=== PATIENT | male | born 1935 | race Caucasian/White ===

== ENCOUNTER 2020-06-29 10:41 | Inpatient (IN) | payer MEDICARE ==
[~2020-06-29] VITALS: Ht 165.1 cm; Wt 88.6 kg
[2020-06-29 12:08] VITALS: BP 114/74
[2020-06-29] MEDS ORDERED: METHYL SALICYLATE/MENTHOL TOPICAL OINTMENT 57GM TUBE. TP PRN (13:00)
[2020-06-29] MEDS ORDERED: MAGNESIUM HYDROXIDE 2,400 MG/30 ML ORAL.SUSP. PO PRN (13:00)
[2020-06-29] MEDS ORDERED: ACETAMINOPHEN 325 MG TABLET PO PRN ×2 (13:00→15:30)
[2020-06-29] MEDS ORDERED: MAG HYDROX/AL HYDROX/SIMETH 30 ML ORAL.SUSP PO PRN (13:00)
[2020-06-29 13:34] LABS: BASO # 0.1 x10^3/uL (0.0-0.2); BASO % 1 % (0-3); EOS # 0.1 x10^3/uL (0.0-0.7); EOS % 1 % (0-3); HEMATOCRIT 44.7 % (39.0-53.0); LYMPH # 1.4 x10^3/uL (1.0-4.8); LYMPH % 21 % (24-48); MEAN CORPUSCULAR HEMOGLOBIN 32 pg (25-35); MEAN CORPUSCULAR HGB CONC 34 g/dL (31-37); MEAN CORPUSCULAR VOLUME 95 fL (79-100); MONO # 0.5 x10^3/uL (0.0-1.1); MONO % 8 % (0-9); NEUT # 4.6 x10^3uL (1.8-7.7); NEUT % 69 % (31-73); PLATELET COUNT 182 x10^3/uL (140-400); RED CELL DISTRIBUTION WIDTH 13.4 % (11.5-14.5); WHITE BLOOD COUNT 6.7 x10^3/uL (4.0-11.0)
[2020-06-29 13:50] LABS: ALBUMIN 3.3 g/dL (3.4-5.0); ALBUMIN/GLOBULIN RATIO 0.9 (1.0-1.7); CALCIUM 8.7 mg/dL (8.5-10.1); CREATININE 1.6 mg/dL (0.7-1.3); GFR 41.6; POTASSIUM 4.2 mmol/L (3.5-5.1); TOTAL BILIRUBIN 0.3 mg/dL (0.2-1.0); TOTAL PROTEIN 6.9 g/dL (6.4-8.2)
--- NOTE | 2020-06-29 14:30 | HP ---
ADMIT DATE: 06/29/2020 HISTORY OF PRESENT ILLNESS: The patient is a pleasant 84-year-old gentleman sent here from [facility]. He has been despondent with suicidal ideations. No active plan. He has been treated for the past year for major depression with some worsening symptoms. He has frequent panic attacks. He feels hopeless. He is admitted in for further treatment and evaluation. Recently, he has been started on combination of Trintellix along with Xanax. OTHER MEDICATIONS: Include vitamin C, aspirin, vitamin D3, Plavix, glucosamine, Lamictal, lisinopril, Remeron, multivitamin, nitroglycerin, Tramadol, and omega 3 fatty acids. OTHER MEDICAL HISTORY: Includes hypertension, degenerative arthritis, and obesity. ALLERGIES: HE HAS ALLERGIES TO CLARITHROMYCIN, DEMEROL, MOXIFLOXACIN, AND PNEUMOCOCCAL VACCINE EXACT CAUSE IS UNCLEAR. SOCIAL HISTORY: He is a nonsmoker, nondrinker. 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 He is and lives with his at home in [place], [place]. He has 6 sons and 17 grandchildren. FAMILY HISTORY: Mother of a pulmonary embolus at age 59. Father of complications of congestive heart failure at age 83. He is retired. REVIEW OF SYSTEMS: Significant for dyspnea with minimal exertion. He denied any chest pain. He had a cardiac catheterization in 2011. He has had bypass surgery with a PIERSON to the LAD, the last echocardiogram done in 03/2019 showed a calcified aortic annulus. Pulmonary artery pressures were 32 mmHg systolic. Ejection fraction preserved at 65%. There is grade 1 diastolic dysfunction. Review of systems again is significant for some minimal exertional dyspnea. His appetite has been fair. He has been depressed. He has had suicidal ideation without any plan. No nausea, vomiting or diarrhea. All other systems reviewed and turned to be negative. PHYSICAL EXAMINATION: GENERAL: This is a pleasant gentleman. His affect was normal. We had a normal conversation. He told me about his family. He did not appear depressed or actively suicidal. VITAL SIGNS: Initial vital signs in our hospital showed a blood pressure 114/74 mmHg, pulse is 72 and regular, temperature 97.8 degrees Fahrenheit, pulse ox was 91% on room air. HEENT: Head is without trauma. Pupils are reactive. Sclerae are nonicteric. Oropharynx is clear. NECK: Supple, no bruits. LUNGS: Good breath sounds, otherwise clear. CARDIOVASCULAR: Showed regular heart tones. No gallops. Peripheral pulses are palpable and full. There is a soft early grade 2 systolic murmur at the left sternal border. ABDOMEN: Obese, protuberant. I cannot palpate any masses or organomegaly. Bowel sounds are normoactive. EXTREMITIES: Show no cyanosis or edema. NEUROLOGIC: Focally intact. SKIN: Warm and dry. Speech was fluent. Cranial nerves 2-12 were intact and symmetrical. PERTINENT LABORATORY STUDIES: His CBC showed hemoglobin of 15.0 g/dL with white count of 6700. The obligatory COVID-19 swab is pending. He had a negative swab according to the patient 2 days ago in [facility]. ASSESSMENT: 1. This 84-year-old gentleman is admitted with major depression and suicidal ideations. He does not have an active plan at this time. 2. Essential hypertension. 3. Major depression with anxiety and frequent panic attacks. 4. Degenerative arthritis. 5. Morbid obesity. PLAN: 1. Admit to the medical floor for COVID screening. He will go up to the [facility] when his COVID swabs are negative. 2. Continue home meds as ordered. 3. We should gladly follow along during the course of his inpatient stay. He is stable at this time from a medical standpoint. CEDRICK DOLAN MD DR: YA/seven JOB#: [id number] / [id number] MARGARET Obregon MD
[2020-06-29] MEDS ORDERED: CLOP75TA57 PO (15:26)
[2020-06-29] MEDS ORDERED: LISI10TA2 PO (15:26)
[2020-06-29] MEDS ORDERED: ASCO500C PO (15:26)
[2020-06-29] MEDS ORDERED: ALPR0.5T6 PO (15:26)
[2020-06-29] MEDS ORDERED: MV-M1TAB7 PO (15:26)
[2020-06-29] MEDS ORDERED: MIRT30TA93 PO (15:26)
[2020-06-29] MEDS ORDERED: ASPI-630 PO (15:26)
[2020-06-29] MEDS ORDERED: GLUC100018 PO (15:26)
[2020-06-29] MEDS ORDERED: VORT5TAB PO (15:26)
[2020-06-29] MEDS ORDERED: MULT-245 PO (15:26)
[2020-06-29] MEDS ORDERED: TRAM50TA PO (15:26)
[2020-06-29] MEDS ORDERED: LAMO25TA9 PO (15:26)
[2020-06-29] MEDS ORDERED: ACET325T21 PO (15:26)
[2020-06-29] MEDS ORDERED: OMEG1CAP38 PO (15:26)
[2020-06-29] MEDS ORDERED: NITR0.4T22 SL (15:26)
[2020-06-29] MEDS ORDERED: NITROGLYCERIN SUBLINGUAL 0.4 MG BOTTLE OF 25. SL PRN (15:30)
[2020-06-29] MEDS ORDERED: traMADol 50 MG TABLET PO PRN (15:30)
[2020-06-29 15:34] VITALS: BP 128/69
--- NOTE | 2020-06-29 17:00 | NUR ---
Patient was speaking to nurse regarding his depression. He stated that in the past he has had ECT, TMJ and light therapy. He has had recurrent episodes of depression with the last one occurring "probably 10 years ago". When asked what medications he thought were the most helpful to him then he stated Haigler, He does not know the dose he was on. He is currently on Lamictal and Trintellix, but states that he is "not impressed" with either one and they don't seem to be working. Nurse provided education to patient that depression medications and mood stabilizers are not immediately effective and that it could take a couple of weeks. Patient stated that he understood this. Patient admits that he is very depressed and that he thought about suicide, but had no plan. He also stated his confucianist and family would prevent him from ever doing something like that.
--- NOTE | 2020-06-29 17:44 | NUR ---
The patient, SRIDHAR KNUTSON, 84 y/o, M admitted by Portillo Longoria, was instructed as to hospital procedures and what to expect on his stay. Patient arrived at 1130 from [facility], via ambulance on a gurney. He has a re-occurrent episode of MDD and is being admitted for Covid Screen prior to admittance to [facility]. Patient had a flat affect on arrival. He states he has had many episodes of depression with remission between them. He stated this one is pretty bad and he had considered suicide but then thought of his family and his bahai. He denies SI at this time. Patient alert and oriented x4. He presents as a good historian. Patient belongings included a suitcase and some books. Patient wears glasses. No valuables were checked at this time.
[2020-06-29] MEDS: MIRTAZAPINE ODT 30 MG TAB.RAPDIS. PO SCH (21:13)
[2020-06-29] MEDS: GLUCOSAMINE 500 MG CAPSULE PO SCH (21:13)
[2020-06-29] MEDS: OMEGA-3 FATTY ACIDS/FISH OIL 1,000 MG CAPSULE. PO SCH (21:13)
--- NOTE | 2020-06-29 21:50 | PDOC ---
Exam Note: Julian Note: Please also refer to the separate dictated note~for this date of service dictated separately.~Patient seen individually. Discussed the patient with Nursing staff reviewed the chart.~Reviewed interim history and current functioning. Reviewed vital signs,~Labs/ Radiology~and current medications noted below. Continue current treatment with the changes noted in the dictated addendum note Assessment: Vital Signs/I&O: Vital Signs Date Time Temp Pulse Resp B/P (MAP) Pulse Ox O2 Delivery O2 Flow Rate FiO2 06/29/20 15:34 96.5 68 18 128/69 (88) 93 Room Air Labs: Laboratory Tests Test 06/29/20 13:22 White Blood Count 6.7 x10^3/uL (4.0-11.0) Red Blood Count 4.70 x10^6/uL (4.30-5.70) Hemoglobin 15.0 g/dL (13.0-17.5) Hematocrit 44.7 % (39.0-53.0) Mean Corpuscular Volume 95 fL (79-100) Mean Corpuscular Hemoglobin 32 pg (25-35) Mean Corpuscular Hemoglobin Concent 34 g/dL (31-37) Red Cell Distribution Width 13.4 % (11.5-14.5) Platelet Count 182 x10^3/uL (140-400) Neutrophils (%) (Auto) 69 % (31-73) Lymphocytes (%) (Auto) 21 % (24-48) L Monocytes (%) (Auto) 8 % (0-9) Eosinophils (%) (Auto) 1 % (0-3) Basophils (%) (Auto) 1 % (0-3) Neutrophils # (Auto) 4.6 x10^3uL (1.8-7.7) Lymphocytes # (Auto) 1.4 x10^3/uL (1.0-4.8) Monocytes # (Auto) 0.5 x10^3/uL (0.0-1.1) Eosinophils # (Auto) 0.1 x10^3/uL (0.0-0.7) Basophils # (Auto) 0.1 x10^3/uL (0.0-0.2) Sodium Level 138 mmol/L (136-145) Potassium Level 4.2 mmol/L (3.5-5.1) Chloride Level 104 mmol/L (98-107) Carbon Dioxide Level 24 mmol/L (21-32) Anion Gap 10 (6-14) Blood Urea Nitrogen 21 mg/dL (8-26) Creatinine 1.6 mg/dL (0.7-1.3) H Estimated GFR (Cockcroft-Gault) 41.6 BUN/Creatinine Ratio 13 (6-20) Glucose Level 139 mg/dL (70-99) H Calcium Level 8.7 mg/dL (8.5-10.1) Magnesium Level 2.0 mg/dL (1.8-2.4) Total Bilirubin 0.3 mg/dL (0.2-1.0) Aspartate Amino Transferase (AST) 18 U/L (15-37) Alanine Aminotransferase (ALT) 31 U/L (16-63) Alkaline Phosphatase 80 U/L (46-116) Total Protein 6.9 g/dL (6.4-8.2) Albumin 3.3 g/dL (3.4-5.0) L Albumin/Globulin Ratio 0.9 (1.0-1.7) L Current Medications: Meds: Current Medications Medications (Trade) Dose Ordered Sig/Chelsi Route PRN Reason Start Time Stop Time Status Last Admin Dose Admin Mirtazapine (Remeron Marlee-Tab) 30 mg HS PO 06/29/20 21:00 06/29/20 21:13 Glucosamine Sulfate (Glucosamine) 1,000 mg BID PO 06/29/20 21:00 06/29/20 21:13 Fish Oil (Fish Oil) 1,000 mg BID PO 06/29/20 21:00 06/29/20 21:13 I have reviewed the current psychotropics carefully including drug interactions. Risk benefit ratio favors no change other than as noted in my dictated progress note. Diagnosis: Problems: (1) COVID-19 ruled out by laboratory testing MARGARET LANGLEY MD Jun 29, 2020 21:50
[2020-06-30 03:07] LABS: THYROXINE 5.3 ug/dL (4.5-12.0)
--- NOTE | 2020-06-30 03:14 | NUR ---
Nursing Note ANAMARIA Ferris entered the room to answer pt's call light. Barrington had previously provided the patient 3 warmed blankets. The patient became highly verbally aggressive with an angry threatening posture with ANAMARIA stating through gritted teeth "It's cold in here, all of you in this place are treating me like an animal and I don't like it!!! I'm going to the higher ups on you!!!" Patient provided an additional blanket, encouraged pt to get under his 4 warmed blankets and get some rest. Pt still with angry scowl on his face, covered up and ignored staff's encouragement. Pt's room and hallway outside room cleared of any potential harmful objects and or contraband.
[2020-06-30 04:08] LABS: HEMOGLOBIN A1C 6.4 % (4.8-5.6)
[2020-06-30 06:16] VITALS: BP 111/50
--- NOTE | 2020-06-30 06:45 | NUR ---
Nursing Note The patient was calm and compliant with his assessment initially this shift. The patient took his medication whole. The patient had one episode of agitation and verbal aggressiveness @HS. The patient is currently sleeping in his room.
--- NOTE | 2020-06-30 07:48 | NUR ---
Nursing Note During shift change, the patient is pacing in his room mumbling under his breath angrily, he is packing and un packing his belongings and room is right by the exit door. Pt posturing and angry this am. CRUSHER TENDER will station herself in the callahan for observation.
[2020-06-30] MEDS: ASCORBIC ACID 500 MG TABLET PO SCH (08:10)
[2020-06-30] MEDS: CLOPIDOGREL BISULFATE 75 MG TABLET PO SCH (08:10)
[2020-06-30] MEDS: CHOLECALCIFEROL (VITAMIN D3) 1,000 UNIT TABLET PO SCH (08:10)
[2020-06-30] MEDS: OMEGA-3 FATTY ACIDS/FISH OIL 1,000 MG CAPSULE. PO SCH ×2 (08:10→20:46)
[2020-06-30] MEDS: LISINOPRIL 10 MG TABLET PO SCH (08:10)
[2020-06-30] MEDS: ASPIRIN CHEWABLE 81 MG TABLET. PO SCH (08:10)
[2020-06-30] MEDS: ALPRAZolam 0.5 MG TABLET PO PRN ×3 (08:10→17:51)
[2020-06-30] MEDS: MULTIVITAMIN with MINERAL TABLET. PO SCH (08:11)
[2020-06-30] MEDS: GLUCOSAMINE 500 MG CAPSULE PO SCH ×2 (08:12→20:47)
[2020-06-30] MEDS: DULoxetine HCL 30 MG CAPSULE.DR PO SCH (08:17)
[2020-06-30] MEDS ORDERED: NON FORMULARY ITEM (Vortioxetine Hydrobromide (Trintellix) 5 MG) PO SCH (09:00)
[2020-06-30] MEDS ORDERED: NON FORMULARY ITEM (Mv-Mn/Iron/Fa/Herbal Cmplx#190 (Vitamin D3 Complete Caplet) 1 EACH) PO SCH (09:00)
--- NOTE | 2020-06-30 11:47 | PN ---
DATE: 06/30/2020 ATTENDING PHYSICIAN: Dr. Dolan. SUBJECTIVE: The patient had a rough night. He did not like his bed. He was uncomfortable. He also complained of being cold. OBJECTIVE FINDINGS: VITAL SIGNS: Blood pressure today is 128/69, pulse 70 and regular, temperature 96.5 degrees Fahrenheit, oxygen saturation 93% on room air. HEENT: Head is without trauma. Pupils are reactive. Sclerae nonicteric. Oropharynx clear. NECK: Supple. LUNGS: Clear. CARDIOVASCULAR: Showed regular heart tones. ABDOMEN: Soft. EXTREMITIES: Without edema. NEUROLOGIC: Focally intact, fully ambulatory. No deficit. SKIN: Warm and dry. LABORATORY DATA: Hemoglobin 15.3 gram. The rest of the chemistry panel unremarkable. Creatinine slightly elevated at 1.6 mg/dL. ASSESSMENT: 1. 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 2. Major depression. 3. Essential hypertension. 4. Degenerative arthritis. 5. Morbid obesity. PLAN: 1. We are waiting for COVID-19 swab. He will go to the [facility] when bed is available. I reviewed his meds. 2. Diet as tolerated. CEDRICK DOLAN MD DR: YA/seven JOB#: [id number] / [id number]
[2020-06-30] MEDS: lamoTRIgine 25 MG TABLET. PO SCH (12:35)
[2020-06-30 17:57] VITALS: BP 138/76
[2020-06-30] MEDS ORDERED: traZODone 50 MG TABLET. PO PRN (18:30)
[2020-06-30] MEDS: QUEtiapine 50 MG TABLET. PO SCH ×2 (18:37→19:34)
--- NOTE | 2020-06-30 19:29 | CONS ---
DATE OF CONSULTATION: IDENTIFYING DATA: The patient is an 84-year-old male referred to us from [facility], where he presented from home on account of worsening symptoms of depression with active suicidal ideation, but no plan, intent or attempt and within the context of the past history of bipolar disorder, treated at different times on ECT, transcranial magnetic stimulation, light therapy and medications. The patient has been increasingly obsessive, was having suicidal ideation, prompting the referral to the ER and then to us for inpatient psychiatric stabilization. He was admitted on the care home unit to have COVID screen completed before transition to the [facility], and I have been asked to consult him while he is on Med/Surg Skilled Unit. He was also having panic attacks, drop in his appetite, not sleeping, hopeless with poor personal hygiene, and had failed outpatient psychiatric interventions. CHIEF COMPLAINT: "I did best on lithium in the past. I feel guilty about a lot of things I have said and done. I don't know how to get to feeling better. 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 No homicidal ideation. PAST PSYCHIATRIC HISTORY: As above. MEDICAL HISTORY: Positive for hypertension, degenerative arthritis, obesity. ALLERGIES: CLARITHROMYCIN, DEMEROL, MOXIFLOXACIN, PNEUMOCOCCAL VACCINE. CURRENT PSYCHOTROPICS: Lamictal 25 mg a day until 07/09/2020 and then 50 mg a day, increasing gradually; Cymbalta 30 mg a day; Remeron 30 mg at bedtime; Xanax 0.5 mg t.i.d. p.r.n. anxiety. The patient was on Trintellix prior to admission. This was changed to Cymbalta 30 mg a day at admission. DIET: Diabetic. Ambulates up ad kevin. CODE STATUS: Full code. PAST PSYCHIATRIC HISTORY: As noted above, he has been treated with ECT, transcranial magnetic stimulation, light therapy, and various antidepressants at different times in the past. FAMILY HISTORY: Noncontributory. 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 No alcohol or drug abuse history is noted. REVIEW OF SYSTEMS: No CV, , pulmonary, eye system symptoms on review. MENTAL STATUS EXAMINATION: The patient was seen individually in his room on the evening of 06/29/2020. Previously discussed with Janee Corral, rental coordinator and NICOLE Curiel and NICOLE Briggs. He is well oriented. Speech coherent, abstraction fair, computation impaired, language function intact, attention span short. Mood is depressed, anxious. Denies active suicidal ideation. LABORATORY DATA: Reviewed. IMPRESSION: Bipolar disorder, depressed; anxiety disorder, unspecified. Rest as above. RECOMMENDATION: From a psychiatric standpoint, we will change the Trintellix to Cymbalta as noted, and he has been initiated on Lamictal. We will increase gradually. May use Abilify or Seroquel to augment the antidepressant depending on how he does. He will be transferred to the [facility] once he is medically cleared for COVID, and we will make further adjustments in the psychotropics as clinically indicated. MAN Dale LANGLEY MD DR: KEESHA/seven JOB#: [id number] / [id number]
[2020-06-30 19:44] LABS: THYROID STIM HORMONE (TSH) 1.18 uIU/mL (0.358-3.740)
[2020-06-30] MEDS: MIRTAZAPINE ODT 30 MG TAB.RAPDIS. PO SCH (20:46)
--- NOTE | 2020-06-30 21:54 | PDOC ---
Exam Note: Julian Note: Please also refer to the separate dictated note~for this date of service dictated separately.~Patient seen individually. Discussed the patient with Nursing staff reviewed the chart.~Reviewed interim history and current functioning. Reviewed vital signs,~Labs/ Radiology~and current medications noted below. Continue current treatment with the changes noted in the dictated addendum note Assessment: Vital Signs/I&O: Vital Signs Date Time Temp Pulse Resp B/P (MAP) Pulse Ox O2 Delivery O2 Flow Rate FiO2 06/30/20 17:57 97.3 82 18 138/76 (96) 92 06/29/20 15:34 Room Air I & O 06/29/20 06/29/20 06/30/20 15:00 23:00 07:00 Intake Total 240 ml 240 ml 150 ml Balance 240 ml 240 ml 150 ml Current Medications: Meds: Current Medications Medications (Trade) Dose Ordered Sig/Chelsi Route PRN Reason Start Time Stop Time Status Last Admin Dose Admin Aspirin (Aspirin Chewable) 81 mg DAILY PO 06/30/20 09:00 06/30/20 08:10 Clopidogrel Bisulfate (Plavix) 75 mg DAILY PO 06/30/20 09:00 06/30/20 08:10 Lisinopril (Prinivil) 10 mg DAILY PO 06/30/20 09:00 06/30/20 08:10 Ascorbic Acid (Vitamin C) 1,000 mg DAILY PO 06/30/20 09:00 06/30/20 08:10 Multivitamins/ Calcium (Thera-M Plus) 1 tab DAILY PO 06/30/20 09:00 06/30/20 08:11 Vitamin D (Vitamin D3) 2,000 unit DAILY PO 06/30/20 09:00 06/30/20 08:10 Lamotrigine (LaMICtal) 25 mg DAILY PO 06/30/20 09:00 07/09/20 23:59 06/30/20 12:35 Duloxetine HCl (Cymbalta) 30 mg DAILY PO 06/30/20 09:00 06/30/20 08:17 Olanzapine (ZyPREXA ZYDIS) 2.5 mg PRN Q2HR PRN PO PSYCHOSIS 06/30/20 18:30 06/30/20 18:37 Trazodone HCl (Desyrel) 50 mg PRN QHS PRN PO INSOMNIA, MAY REPEAT X1 06/30/20 18:30 06/30/20 20:46 Quetiapine Fumarate (SEROquel) 50 mg QHS PO 06/30/20 18:30 06/30/20 18:37 I have reviewed the current psychotropics carefully including drug interactions. Risk benefit ratio favors no change other than as noted in my dictated progress note. Diagnosis: Problems: (1) COVID-19 ruled out by laboratory testing (2) Bipolar disorder, current episode depressed, mild (3) Anxiety disorder, unspecified MARGARET LANGLEY MD Jun 30, 2020 21:54
--- NOTE | 2020-06-30 21:59 | NUR ---
Nursing Note: Pt in his room, making his bed at shift change. Pt restless and slightly irritable when approached but was cooperative with assessment and compliant with medications administered whole. Pt currently resting quietly in bed with eyes closed and CPAP in use.
[2020-07-01 06:01] VITALS: BP 123/66
[2020-07-01] MEDS: MULTIVITAMIN with MINERAL TABLET. PO SCH (08:39)
[2020-07-01] MEDS: LISINOPRIL 10 MG TABLET PO SCH (08:39)
[2020-07-01] MEDS: GLUCOSAMINE 500 MG CAPSULE PO SCH ×2 (08:39→20:16)
[2020-07-01] MEDS: ASPIRIN CHEWABLE 81 MG TABLET. PO SCH (08:39)
[2020-07-01] MEDS: ASCORBIC ACID 500 MG TABLET PO SCH (08:40)
[2020-07-01] MEDS: lamoTRIgine 25 MG TABLET. PO SCH (08:40)
[2020-07-01] MEDS: CHOLECALCIFEROL (VITAMIN D3) 1,000 UNIT TABLET PO SCH (08:40)
[2020-07-01] MEDS: CLOPIDOGREL BISULFATE 75 MG TABLET PO SCH (08:40)
[2020-07-01] MEDS: OMEGA-3 FATTY ACIDS/FISH OIL 1,000 MG CAPSULE. PO SCH ×2 (08:40→20:15)
[2020-07-01] MEDS: DULoxetine HCL 30 MG CAPSULE.DR PO SCH (08:40)
[2020-07-01 11:15] VITALS: BP 121/67
[2020-07-01] MEDS: PSEUDOEPHEDRINE ER 120 MG TABLET.ER. PO SCH (12:03)
[2020-07-01] MEDS: CETIRIZINE HCL 10 MG TABLET PO SCH (12:03)
--- NOTE | 2020-07-01 12:35 | PN ---
DATE: 07/01/2020 ATTENDING PHYSICIAN: Dr. Dolan. SUBJECTIVE: The patient complains of sinus congestion and postnasal drip. OBJECTIVE FINDINGS: VITAL SIGNS: Blood pressure today is 123/66, pulse is 66 and regular, temperature 97.5 degrees Fahrenheit, oxygen saturation 97% on room air. HEENT: Head is without trauma. Pupils are reactive. Sclerae nonicteric. Oropharynx clear. NECK: Supple. LUNGS: Clear. CARDIOVASCULAR: Showed regular heart tones. ABDOMEN: Obese, protuberant. EXTREMITIES: Without edema or cyanosis. NEUROLOGIC: Focally intact. SKIN: Warm and dry. LABORATORY DATA: COVID-19 swab is still pending. ASSESSMENT: 1. 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 2. Essential hypertension. 3. Major depression. 4. Degenerative arthritis. 5. Morbid obesity. 6. Allergic rhinitis. PLAN: 1. I have ordered Zyrtec and pseudoephedrine. 2. Await COVID-19 swab to go to the [facility] when a bed is available. 3. Diet as tolerated. CEDRICK DOLAN MD DR: YA/seven JOB#: [id number] / [id number]
[2020-07-01 15:00] VITALS: BP 136/75
--- NOTE | 2020-07-01 15:45 | NUR ---
Patient c/o feeling anxious; he appears shaken and restless. Offered alprazolam, patient denied. Offered olanzapine, patient accepted; prn medication provided per eMAR. Placed Jackelyn in patient's room playing relaxation music. Will continue to monitor.
[2020-07-01] MEDS: MIRTAZAPINE ODT 30 MG TAB.RAPDIS. PO SCH (20:15)
[2020-07-01] MEDS: QUEtiapine 50 MG TABLET. PO SCH (20:15)
[2020-07-01 21:33] VITALS: BP 140/73
--- NOTE | 2020-07-01 21:42 | PDOC ---
Exam Note: Julian Note: This note is a late entry for 06/30/2020 covers elements not covered in my initial note. Subjective: The patient was seen on telehealth rounds in the evening of 06/30/2020 with Joshua RIVERA. Discussed with nursing staff, reviewed the chart. The patient has been quite frustrated previous evening. He complained of feeling cold, was given extra blankets repeatedly, still felt this was inadequate, was more angry, labile, making vague suicidal statements. I addressed his suicidal statements with him individually on telehealth rounds at length and he thoroughly denies he tried to hurt himself but states that is an expression of his frustration. At one point he was posturing, threatening staf f, paranoid somewhat. We will add Zyprexa 2.5 mg q.2h. p.r.n. psychosis and agitation max 10 mg in 24 hours. We will also add trazodone 50 mg h.s. p.r.n., may repeat x1 for insomnia and Seroquel as an atypical antipsychotic mood stabilizer 50 mg h.s. He has also been given a K-heating pad to help with his above complaints. Review of Systems: No CV, , pulmonary, eye, ENT system symptoms on review. Mental Status Exam: The patient is reasonably oriented. Speech is coherent. Abstraction is fair. Computation somewhat impaired. Language function intact. Mood is depressed, anxious. No active suicidal ideation as noted above, somewhat distractible, nevertheless he is quite verbal during the telehealth rounds. Laboratory Data: Reviewed. Impression: Bipolar disorder depressed. Anxiety disorder unspecified. Impulse control disorder. Plan: We had a lengthy discussion and changes as noted above including Zyprexa, trazodone, Seroquel. Lamictal has been gradually increased as a mood stabilizer. Cymbalta remains at [address] day in [address] of the Trintellix that he was taking prior to admission and he stays on Remeron 30 mg h.s. and Xanax p.r.n. Adjust further as clinically indicated. Assessment: Vital Signs/I&O: Vital Signs Date Time Temp Pulse Resp B/P (MAP) Pulse Ox O2 Delivery O2 Flow Rate FiO2 07/01/20 21:33 97.6 80 18 140/73 (95) 95 Room Air I & O 06/30/20 06/30/2007/01/20 15:00 23:00 07:00 Intake Total 480 ml 240 ml 0 ml Balance 480 ml 240 ml 0 ml Current Medications: Meds: Current Medications Medications (Trade) Dose Ordered Sig/Chelsi Route PRN Reason Start Time Stop Time Status Last Admin Dose Admin Cetirizine HCl (ZyrTEC) 10 mg DAILY PO 07/01/20 12:00 07/01/20 12:03 Pseudoephedrine HCl (Sudafed 12-Hour) 240 mg DAILY PO 07/01/20 12:00 07/01/20 12:03 I have reviewed the current psychotropics carefully including drug interactions. Risk benefit ratio favors no change other than as noted in my dictated progress note. Diagnosis: Problems: (1) COVID-19 ruled out by laboratory testing (2) Anxiety disorder, unspecified (3) Bipolar disorder, current episode depressed, mild SHIVAM,MARGARET Ferrera MD Jul 01, 2020 21:42
--- NOTE | 2020-07-01 22:32 | PDOC ---
Exam Note: Julian Note: Please also refer to the separate dictated note~for this date of service dictated separately.~Patient seen individually. Discussed the patient with Nursing staff reviewed the chart.~Reviewed interim history and current functioning. Reviewed vital signs,~Labs/ Radiology~and current medications noted below. Continue current treatment with the changes noted in the dictated addendum note Assessment: Vital Signs/I&O: Vital Signs Date Time Temp Pulse Resp B/P (MAP) Pulse Ox O2 Delivery O2 Flow Rate FiO2 07/01/20 21:33 97.6 80 18 140/73 (95) 95 Room Air I & O 06/30/20 06/30/20 07/01/20 15:00 23:00 07:00 Intake Total 480 ml 240 ml 0 ml Balance 480 ml 240 ml 0 ml Current Medications: Meds: Current Medications Medications (Trade) Dose Ordered Sig/Chelsi Route PRN Reason Start Time Stop Time Status Last Admin Dose Admin Cetirizine HCl (ZyrTEC) 10 mg DAILY PO 07/01/20 12:00 07/01/20 12:03 Pseudoephedrine HCl (Sudafed 12-Hour) 240 mg DAILY PO 07/01/20 12:00 07/01/20 12:03 I have reviewed the current psychotropics carefully including drug interactions. Risk benefit ratio favors no change other than as noted in my dictated progress note. Diagnosis: Problems: (1) Anxiety disorder, unspecified (2) Bipolar disorder, current episode depressed, mild SHIVAM,MARGARET Ferrera MD Jul 01, 2020 22:32
--- NOTE | 2020-07-01 23:59 | NUR ---
Patient sitting up in bed on assumption of care. He is in pleasant spirits. Calm, cooperative and compliant with assessments and medications taken whole. No agitation. Denies SI at present time. Patient appears to be sleeping comfortably. Will continue to monitor.
[2020-07-02 06:33] VITALS: BP 105/56
--- NOTE | 2020-07-02 06:34 | PDOC ---
Exam Note: Julian Note: This note is a late entry for 07/01/2020 covers elements not covered in my initial note. Subjective: The patient was reviewed on telehealth rounds in the evening of 07/01/2020 with Joshua RIVERA. Discussed with nursing staff, reviewed the chart. The patient has done better since we started Seroquel last night. He did become agitated, paranoid. This afternoon received Zyprexa at 4 p.m. He does not seem to like the Xanax. He has been given a antionette and is listening to classical music on it and seems much calmer. COVID screen had not been completely inadvertently and has been done today. We will await results before transitioning to [facility]. Review of Systems: He still admits to feeling cold. No CV, , pulmonary, eye system symptoms on review. Mental Status Exam: The patient is reasonably oriented. Speech is coherent. Abstraction is fair. Computation impaired. Language function intact. Mood and affect lability is improved. Denies active suicidal ideation. Laboratory Data: Reviewed. Impression: Bipolar disorder depressed. Anxiety disorder unspecified. Impulse control disorder. Plan: No change from initial note. We will gradually increase Seroquel further. Adjust the Lamictal. Rest unchanged for now. Assessment: Vital Signs/I&O: Vital Signs Date Time Temp Pulse Resp B/P (MAP) Pulse Ox O2 Delivery O2 Flow Rate FiO2 07/01/20 21:33 97.6 80 18 140/73 (95) 95 Room Air I & O 07/01/20 07/01/20 07/02/20 15:00 23:00 07:00 Intake Total 600 ml 720 ml 0 ml Balance 600 ml 720 ml 0 ml Current Medications: Meds: Current Medications Medications (Trade) Dose Ordered Sig/Chelsi Route PRN Reason Start Time Stop Time Status Last Admin Dose Admin Cetirizine HCl (ZyrTEC) 10 mg DAILY PO 07/01/20 12:00 07/01/20 12:03 Pseudoephedrine HCl (Sudafed 12-Hour) 240 mg DAILY PO 07/01/20 12:00 07/01/20 12:03 I have reviewed the current psychotropics carefully including drug interactions. Risk benefit ratio favors no change other than as noted in my dictated progress note. Diagnosis: Problems: (1) COVID-19 ruled out by laboratory testing (2) Anxiety disorder, unspecified (3) Bipolar disorder, current episode depressed, mild SHIVAM,MARGARET Ferrera MD Jul 02, 2020 06:34
--- NOTE | 2020-07-02 06:41 | NUR ---
Pt. was cooperate and pleasant throughout the shift, continent of bowel and bladder, self toilets, and hooked self up to CPAP machine before bed. Pt. expressed concern over medications and side effects, reporting sores in mouth and displaying them when asked. Sores were approximately 5mm in diameter, oval shaped, one on right side of tongue and other on left side of upper lip. RN was notified and said would leave note for doctor to assess. Pt displayed some restlessness prior to bed (approximately 2100) making bed several times, stating "i can't get it quite right" pt declined assistance saying they wanted to try themselves a little longer. I offered to provide assistance next time I came by if pt. was unable to make bed to their liking by that time. Pt agreed to accept assistance but when I returned to the room (approximately 15 mins later) pt was in bed under the covers. Pt toileted self once during the night (pt reported) and was in a good mood in the morning.
[2020-07-02] MEDS: OMEGA-3 FATTY ACIDS/FISH OIL 1,000 MG CAPSULE. PO SCH (08:30)
[2020-07-02] MEDS: GLUCOSAMINE 500 MG CAPSULE PO SCH (08:30)
[2020-07-02] MEDS: ASPIRIN CHEWABLE 81 MG TABLET. PO SCH (08:30)
[2020-07-02] MEDS: lamoTRIgine 25 MG TABLET. PO SCH (08:30)
[2020-07-02] MEDS: DULoxetine HCL 30 MG CAPSULE.DR PO SCH (08:30)
[2020-07-02] MEDS: CLOPIDOGREL BISULFATE 75 MG TABLET PO SCH (08:30)
[2020-07-02] MEDS: MULTIVITAMIN with MINERAL TABLET. PO SCH (08:31)
[2020-07-02] MEDS: CETIRIZINE HCL 10 MG TABLET PO SCH (08:31)
[2020-07-02] MEDS: ASCORBIC ACID 500 MG TABLET PO SCH (08:31)
[2020-07-02] MEDS: PSEUDOEPHEDRINE ER 120 MG TABLET.ER. PO SCH (08:31)
[2020-07-02] MEDS: CHOLECALCIFEROL (VITAMIN D3) 1,000 UNIT TABLET PO SCH (08:31)
[2020-07-02] MEDS: LISINOPRIL 10 MG TABLET PO SCH (09:00)
--- NOTE | 2020-07-02 09:53 | NUR ---
Pt is cooperative with his medication and assessment. Pt walks 48 hour unit for exercise. He states he is here for depression. No thoughts of SI/HI at this time. Pt has contracted for safety at this time. He is cooperative, calm, no agitation, no aggression,no hallucinations or delusions noted.
--- NOTE | 2020-07-02 09:58 | NUR ---
Pt states he has developed mouth sores and would like to discuss this with the
--- NOTE | 2020-07-02 11:50 | PN ---
DATE: 07/02/2020 ATTENDING PHYSICIAN: Dr. Dolan. SUBJECTIVE: The patient is breathing better. The antihistamine decongestant has helped. OBJECTIVE FINDINGS: VITAL SIGNS: Blood pressure today is 140/73, pulse 80 and regular, temperature 97.6, oxygen saturation 95% on room air. HEENT: Head is without trauma. Pupils are reactive. Sclerae nonicteric. Oropharynx clear. NECK: Supple, no bruits. LUNGS: Clear. CARDIOVASCULAR: Showed regular heart tones. ABDOMEN: Soft. No organomegaly. EXTREMITIES: Without edema. NEUROLOGIC: Focally intact. SKIN: Warm and dry. ASSESSMENT: 1. 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 2. Essential hypertension. 3. Allergic rhinitis, improved. 4. Major depression. 5. Degenerative arthritis. 6. Morbid obesity. PLAN: 1. Continue Zyrtec and pseudoephedrine. 2. Await COVID-19 swab. 3. He shall be discharged to the [facility] when he is cleared. CEDRICK DOLAN MD DR: YA/seven JOB#: [id number] / [id number]
--- NOTE | 2020-07-02 13:42 | NUR ---
informed of pts Neg COVID. Pt will be transferred [facility].
--- NOTE | 2020-07-02 13:55 | NUR ---
Discharge Note: SRIDHAR KNUTSON Discharge instructions and discharge home medications reviewed with Coat Joiner and a copy given. All questions have been answered and understanding verbalized. The following instructions and handouts were given: Discontinued lines and drains: No IV line in place. Patient discharged to [facility] Discussed with Nurse Ahumada and ANAMARIA'mai Rodas. Pt left via Ambulation.
[2020-07-02] MEDS ORDERED: CHOL10003 PO (20:15)
[2020-07-02] MEDS ORDERED: OLAN5TAB99 PO (20:15)
[2020-07-02] MEDS ORDERED: DULO30CA2 PO (20:15)
[2020-07-02] MEDS ORDERED: PSEU120T9 PO (20:15)
[2020-07-02] MEDS ORDERED: QUET50TA5 PO (20:15)
[2020-07-02] MEDS ORDERED: TRAZ-120 PO (20:15)
[2020-07-02] MEDS ORDERED: CETI10TA74 PO (20:15)
--- NOTE | 2020-07-03 02:44 | DS ---
DATE OF DISCHARGE: 07/02/2020 ATTENDING PHYSICIAN: Dr. Dolan FINAL DISCHARGE DIAGNOSES: An 84-year-old gentleman with; 1. Major depression. 2. Suicidal ideations without active plan. 3. Essential hypertension. 4. Degenerative arthritis. 5. Anxiety with panic attacks. 6. Morbid obesity. 7. Allergic rhinitis, improved. HISTORY OF PRESENT ILLNESS: The patient is a pleasant 84-year-old gentleman sent here from [facility]. He has become despondent. He has had suicidal ideations. He is quite depressed. He was admitted to the medical floor for COVID-19 screening with eventual moving upstairs to the [facility]. PHYSICAL EXAMINATION: Please see the dictated note. PERTINENT LABORATORY AND X-RAY STUDIES: The COVID-19 coronavirus swab was nonreactive, negative. The Treponema pallidum antibody was nonreactive. Hemoglobin maintained at 15.0 g/dL with white count of 6700. Electrolytes were within normal range. Creatinine was 1.6 mg/dL. Electrolytes within normal range. Transaminases are normal. Hemoglobin A1c was 6.4. COURSE IN THE HOSPITAL: The patient was admitted. Psychiatric meds were continued. He did well. He had some allergic rhinitis symptoms. He responded well to [place] plus pseudoephedrine. On the third hospital day, his vital signs were stable. His COVID-19 swab returned negative. He was ready for discharge to be readmitted to the [facility]. Therefore, he will be going upstairs. There are no changes on his meds. He will continue his scheduled Tylenol, alprazolam 0.5 mg t.i.d., vitamin C, aspirin 81 mg daily, Plavix 75 mg daily, glucosamine, Lamictal 25 mg daily, total equaling 125 mg, lisinopril 10 mg daily, Remeron 30 mg at bedtime, multivitamin, nitroglycerin p.r.n., omega 3 fatty acid, tramadol and Trintellix, dose unchanged. He was discharged there from our hospital in stable condition to go to the [facility] with explicit instructions and followup care. We shall follow him up there from medical standpoint. CEDRICK DOLAN MD DR: YA/seven JOB#: [id number] / [id number] MARGARET Obregon MD
[2020-07-10] MEDS ORDERED: lamoTRIgine 25 MG TABLET. PO SCH (09:00)
[2020-07-24] MEDS ORDERED: lamoTRIgine 25 MG TABLET. PO SCH (09:00)
== END 2020-07-02 16:00 | DRG 153 ==
LOC: LND 11:36
PROVIDERS: ADMIT Psychiatry & Neurology Psychiatry; ATTEND Psychiatry & Neurology Psychiatry
DX: J30.9 Allergic rhinitis, unspecified (principal); R45.851 Suicidal ideations; F31.9 Bipolar disorder, unspecified; E66.01 Morbid (severe) obesity due to excess calories; F41.0 Panic disorder [episodic paroxysmal anxiety]; F41.8 Other specified anxiety disorders; I10 Essential (primary) hypertension; M19.90 Unspecified osteoarthritis, unspecified site; Z82.49 Family history of ischemic heart disease and other diseases of the circulatory system; Z20.828 Contact with and (suspected) exposure to other viral communicable diseases; Z68.32 Body mass index [BMI] 32.0-32.9, adult; Z88.8 Allergy status to other drugs, medicaments and biological substances
CPT/HCPCS: 36415; 80053; 80061; 82306; 82607; 83036; 83540; 83550; 83735; 84436; 84443; 84480; 85025; 86592; U0003-CS

== ENCOUNTER 2020-07-02 19:20 | Inpatient (IN) | payer MEDICARE ==
[~2020-07-02] VITALS: Ht 167.6 cm; Wt 88.7 kg
[~2020-07-02 19:20] MED LIST: ACET325T21 PO; ALPR0.5T6 PO; ASCO500C PO; ASPI-630 PO; CLOP75TA57 PO; GLUC100018 PO; LAMO25TA9 PO; LISI10TA2 PO; MIRT30TA93 PO; MULT-245 PO; MV-M1TAB7 PO; NITR0.4T22 SL; OMEG1CAP38 PO; TRAM50TA PO; VORT5TAB PO
[2020-07-02 19:30] VITALS: BP 167/82
--- NOTE | 2020-07-02 19:30 | NUR ---
Pt arrived to [facility]. Pt A/O x4, cooperative and anxious. Pt tearful at times and stated that he does not want to stay. Pt spoke with on phone this evening and repeatedly asked her to come and get him. Pt given felt tip pen and paper to journal. Pt refused any other interventions. Pt anxious that he is going to be cold throughout the night. Pt given extra blankets and sweatshirt. VS taken and belongings inventoried. Pt has glasses and CPAP machine.
[2020-07-02] MEDS ORDERED: ACETAMINOPHEN 325 MG TABLET PO PRN ×2 (20:00→21:30)
[2020-07-02] MEDS ORDERED: traMADol 50 MG TABLET PO PRN (20:00)
[2020-07-02] MEDS ORDERED: NITROGLYCERIN SUBLINGUAL 0.4 MG BOTTLE OF 25. SL PRN (20:00)
[2020-07-02] MEDS ORDERED: QUET50TA5 PO (20:15)
[2020-07-02] MEDS ORDERED: OLAN5TAB99 PO (20:15)
[2020-07-02] MEDS ORDERED: TRAZ-120 PO (20:15)
[2020-07-02] MEDS ORDERED: CHOL10003 PO (20:15)
[2020-07-02] MEDS ORDERED: DULO30CA2 PO (20:15)
[2020-07-02] MEDS ORDERED: PSEU120T9 PO (20:15)
[2020-07-02] MEDS ORDERED: CETI10TA74 PO (20:15)
[2020-07-02] MEDS ORDERED: QUEtiapine 50 MG TABLET. PO SCH (21:00)
[2020-07-02] MEDS ORDERED: NON FORMULARY ITEM (Glucosamine Sulfate 2KCL (Glucosamine) 1,000 MG) PO SCH (21:00)
[2020-07-02] MEDS: OMEGA-3 FATTY ACIDS/FISH OIL 1,000 MG CAPSULE. PO SCH (21:07)
[2020-07-02] MEDS: MIRTAZAPINE ODT 30 MG TAB.RAPDIS. PO SCH (21:08)
[2020-07-02] MEDS ORDERED: MAG HYDROX/AL HYDROX/SIMETH 30 ML ORAL.SUSP PO PRN (21:30)
[2020-07-02] MEDS ORDERED: METHYL SALICYLATE/MENTHOL TOPICAL OINTMENT 57GM TUBE. TP PRN (21:30)
[2020-07-02] MEDS ORDERED: MAGNESIUM HYDROXIDE 2,400 MG/30 ML ORAL.SUSP. PO PRN (21:30)
--- NOTE | 2020-07-02 21:50 | PDOC ---
Exam Note: Julian Note: Please also refer to the separate dictated note~for this date of service dictated separately.~Patient seen individually. Discussed the patient with Nursing staff reviewed the chart.~Reviewed interim history and current functioning. Reviewed vital signs,~Labs/ Radiology~and current medications noted below. Continue current treatment with the changes noted in the dictated addendum note Current Medications: Meds: Current Medications Medications (Trade) Dose Ordered Sig/Chelsi Route PRN Reason Start Time Stop Time Status Last Admin Dose Admin Mirtazapine (Remeron Marlee-Tab) 30 mg HS PO 07/02/20 21:00 07/02/20 21:08 Quetiapine Fumarate (SEROquel) 50 mg QHS PO 07/02/20 21:00 07/02/20 21:08 Fish Oil (Fish Oil) 1,000 mg BID PO 07/02/20 21:00 07/02/20 21:07 I have reviewed the current psychotropics carefully including drug interactions. Risk benefit ratio favors no change other than as noted in my dictated progress note. Diagnosis: Problems: (1) Impulse control disorder (2) Anxiety disorder, unspecified (3) Bipolar disorder, current episode depressed, mild SHIVAMMARGARET MD Jul 02, 2020 21:50
--- NOTE | 2020-07-03 00:52 | NUR ---
Pt upset on initial interaction (approximately 1900). Pt asked, " has this hospital ever been sued" I asked for clarification "what do you mean" Pt responded, "I do not feel that I am being treated well, they took my belt, they want to take my shoes and my jeans" I explained to pt. the safety concerns with belt, shoes; told pt that I would ask about the jeans and we would let him know. Pt requested phone, I told him that I would check with nurse and let him know. After explaining situation to nurse, RN stated they would speak with pt. I returned to room and let pt know RN would be coming to speak with him about his request for the phone. Pt. was satisfied with that stated " i am very cold, i am freezing. the first night here I was so cold". I told pt i would get him a blanket, brought it to him later and pt. was satisfied and did not complain of cold again. Pt requested pajammas and I brought him some unit sweats/shirt/sweatshit. Pt changed self and allowed me to launder personal clothing. Pt complained of blood in urine (approximately [id number]. Gave pt. urinal and requested that they urinate in the urinal next time so that we could obtain a sample. Notified RN. Pt used urinal within the hour and left on toilet in bathroom, there was no visible blood in urinal. Pt applied own CPAP and has been resting.
[2020-07-03] MEDS: traZODone 50 MG TABLET. PO PRN ×2 (01:16→20:07)
[2020-07-03 05:51] VITALS: BP 164/87
--- NOTE | 2020-07-03 06:00 | NUR ---
Pt has been awake intermittently throughout the night. At one point pt complained that his room was too hot after requesting extra blankets and sweatshirt earlier in the evening because he was afraid of being too cold. Pt very irritable this morning and short with this RN. Pt asked "Is it necessary to get an EKG at 5:00 in the morning?" "Is it necessary for you to take my blood pressure this early?" Pt informed that RT completes the EKG when they are available and that staff is required to take vital signs every morning at this time. Pt then requested to use the phone to call his . Pt informed that he can use the phone after breakfast. This RN asked pt if he would like to discuss anything with her. Pt declined, stating that he needed to "formulate" his questions first. Will continue to monitor.
--- NOTE | 2020-07-03 06:47 | PDOC ---
Exam Note: Julian Note: PSYCHIATRIC ADMISSION HISTORY/EVALUATION This note is a late entry for 07/02/2020 covers elements not covered in my initial note. Identifying Data: The patient is an 84-year-old male referred to us from [facility] ER where he presented from home on account of worsening symptoms of depression with active suicidal ideation, but no plan, intent or attempt and within the context of past history of bipolar disorder, treated different times on ECT, medications, etc. He was transitioned from correction unit to the [facility] today after his COVID screen was negative. Consultation was done on the correction unit and is being incorporated as part of this dictation since that information has not changed. History of Present Illness: The patient has a history of bipolar disorder as noted above and recently has been getting depressed, hopeless, helpless, worthless with sleep and appetite changes, marked obsessiveness, some paranoia and suicidal ideation but no plans, intent or attempt. No homicidal ideation. Subjectively, the patient was reviewed on telehealth rounds in the evening of 07/02/2020 with Jill RIVERA. Discussed with nursing staff, reviewed the chart. He states he is doing better, less anxious, very appreciative of the care by the nursing staff. Past Psychiatric History: As noted above. Medical History: Positive for hypertension, degenerative arthritis, obesity. Code Status: Full code. Allergies: CLARITHROMYCIN, DEMEROL, MOXIFLOXACIN, PNEUMOCOCCAL VACCINE. Diet: Diabetic. Ambulates up ad kevin. Current Psychotropics: Lamictal 25 mg a day until 07/09/2020 and then 50 mg a day, increasing gradually, Cymbalta 30 mg a day, Remeron 30 mg bedtime, Xanax 0.5 mg t.i.d. p.r.n. anxiety. Family History: Non-contributory. Social History: No history of alcohol or drug abuse. 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 Review of Systems: No CV, , pulmonary, eye system symptoms on review. Mental Status Exam: The patient is reasonably oriented. Speech is coherent. Abstraction is fair. Computation impaired. Language function intact. Attention span somewhat short. Mood and affect less labile, less anxious. Denies active suicidal ideation. Laboratory Data: Reviewed. Impression: Bipolar disorder depressed. Major depressive disorder. Anxiety disorder unspecified. Rest as above. Plan: No change from initial note but the patient states he is having some mouth sores which he attributes to Cymbalta and we will change this to Zoloft 50 mg a day. Continue rest of the psychotropics unchanged including gradual increase of Lamictal. Maintain Remeron, Xanax p.r.n., Zyprexa p.r.n., trazodone and Seroquel. Assessment: Vital Signs/I&O: Vital Signs Date Time Temp Pulse Resp B/P (MAP) Pulse Ox O2 Delivery O2 Flow Rate FiO2 07/03/20 05:51 97.9 104 20 164/87 (112) 93 07/03/20 00:49 BiPAP/CPAP I & O 07/02/20 07/02/20 07/03/20 15:00 23:00 07:00 Intake Total 360 ml Balance 360 ml Current Medications: Meds: Current Medications Medications (Trade) Dose Ordered Sig/Chelsi Route PRN Reason Start Time Stop Time Status Last Admin Dose Admin Mirtazapine (Remeron Marlee-Tab) 30 mg HS PO 07/02/20 21:00 07/02/20 21:08 Quetiapine Fumarate (SEROquel) 50 mg QHS PO 07/02/20 21:00 07/02/20 21:08 Trazodone HCl (Desyrel) 50 mg PRN QHS PRN PO INSOMNIA, MAY REPEAT X1 07/02/20 20:00 07/03/20 01:16 Fish Oil (Fish Oil) 1,000 mg BID PO 07/02/20 21:00 07/02/20 21:07 I have reviewed the current psychotropics carefully including drug interactions. Risk benefit ratio favors no change other than as noted in my dictated progress note. Diagnosis: Problems: (1) Impulse control disorder (2) Anxiety disorder, unspecified (3) Bipolar disorder, current episode depressed, mild SHIVAM,MAN Iban RUIZ Jul 03, 2020 06:47
--- NOTE | 2020-07-03 06:52 | EKG ---
[address] [address] Test Date: 2020-07-03 Test Time: 05:10:23 Pat Name: SRIDHAR KNUTSON Department: Room: [facility] 1 Gender: M Dental Surgery Doctor: : 1935 Requested By: MARGARET LANGLEY Order Number: [id number] Reading MD: Measurements Intervals [place] Rate: 101 P: 0 KS: 192 QRS: 29 QRSD: 90 T: 43 QT: 344 QTc: 447 Interpretive Statements SINUS TACHYCARDIA NO SPECIFIC ECG ABNORMALITIES RI6.01 No previous ECG available for comparison
[2020-07-03] MEDS: CLOPIDOGREL BISULFATE 75 MG TABLET PO SCH (08:53)
[2020-07-03] MEDS: OMEGA-3 FATTY ACIDS/FISH OIL 1,000 MG CAPSULE. PO SCH ×2 (08:53→20:04)
[2020-07-03] MEDS: LISINOPRIL 10 MG TABLET PO SCH (08:53)
[2020-07-03] MEDS: lamoTRIgine 25 MG TABLET. PO SCH (08:53)
[2020-07-03] MEDS: MULTIVITAMIN with MINERAL TABLET. PO SCH (08:53)
[2020-07-03] MEDS: CHOLECALCIFEROL (VITAMIN D3) 1,000 UNIT TABLET PO SCH (08:53)
[2020-07-03] MEDS: CETIRIZINE HCL 10 MG TABLET PO SCH (08:55)
[2020-07-03] MEDS: ASCORBIC ACID 500 MG TABLET PO SCH (08:55)
[2020-07-03] MEDS: ASPIRIN CHEWABLE 81 MG TABLET. PO SCH (08:55)
[2020-07-03] MEDS: SERTRALINE 25 MG TABLET. PO SCH (08:55)
[2020-07-03] MEDS: PSEUDOEPHEDRINE ER 120 MG TABLET.ER. PO SCH ×3 (08:56→21:00)
[2020-07-03] MEDS ORDERED: DULoxetine HCL 30 MG CAPSULE.DR PO SCH (09:00)
[2020-07-03] MEDS ORDERED: lamoTRIgine 25 MG TABLET. PO SCH ×3 (09:00)
[2020-07-03 10:13] LABS: BASO # 0.1 x10^3/uL (0.0-0.2); BASO % 1 % (0-3); EOS % 0 % (0-3); HEMATOCRIT 43.6 % (39.0-53.0); HEMOGLOBIN 14.5 g/dL (13.0-17.5); LYMPH # 0.8 x10^3/uL (1.0-4.8); LYMPH % 13 % (24-48); MEAN CORPUSCULAR HEMOGLOBIN 32 pg (25-35); MEAN CORPUSCULAR HGB CONC 33 g/dL (31-37); MEAN CORPUSCULAR VOLUME 95 fL (79-100); MONO # 0.6 x10^3/uL (0.0-1.1); MONO % 9 % (0-9); NEUT % 77 % (31-73); PLATELET COUNT 186 x10^3/uL (140-400); RED CELL DISTRIBUTION WIDTH 13.7 % (11.5-14.5); WHITE BLOOD COUNT 6.4 x10^3/uL (4.0-11.0)
--- NOTE | 2020-07-03 10:18 | NUR ---
Patient calm and cooperative in room. Patient Complaint with medication and assessment. Patient requested to nap more since he did not sleep much last night.
[2020-07-03 10:22] LABS: ALBUMIN 3.4 g/dL (3.4-5.0); ALBUMIN/GLOBULIN RATIO 0.9 (1.0-1.7); CALCIUM 8.8 mg/dL (8.5-10.1); CREATININE 1.5 mg/dL (0.7-1.3); GFR 44.8; POTASSIUM 4.1 mmol/L (3.5-5.1); TOTAL BILIRUBIN 0.5 mg/dL (0.2-1.0); TOTAL PROTEIN 7.1 g/dL (6.4-8.2)
[2020-07-03] MEDS: ALPRAZolam 0.5 MG TABLET PO PRN ×2 (11:55→20:07)
[2020-07-03 16:21] VITALS: BP 141/70
--- NOTE | 2020-07-03 17:35 | NUR ---
Patient states that his anxiety has been bad all day. Patient given prn medication to help with his anxiety. Patient states he is the most suicidal he has been. Nurse consoled patient and patient was given a tablet to occupy his time. Patient states he believes the source of his anxiety and SI thoughts are from the lack of sleep last night and boredom. Patient requested to call to help him. Patient will be continued to be monitored and assisted through his struggle. Dr. Moran to be notified.
[2020-07-03] MEDS: MIRTAZAPINE ODT 30 MG TAB.RAPDIS. PO SCH (20:04)
[2020-07-03] MEDS: QUEtiapine 50 MG TABLET. PO SCH (20:06)
--- NOTE | 2020-07-03 22:08 | PDOC ---
Exam Note: Julian Note: Please also refer to the separate dictated note~for this date of service dictated separately.~Patient seen individually. Discussed the patient with Nursing staff reviewed the chart.~Reviewed interim history and current functioning. Reviewed vital signs,~Labs/ Radiology~and current medications noted below. Continue current treatment with the changes noted in the dictated addendum note Assessment: Vital Signs/I&O: Vital Signs Date Time Temp Pulse Resp B/P (MAP) Pulse Ox O2 Delivery O2 Flow Rate FiO2 07/03/20 16:21 98.8 95 2 141/70 (93) 92 07/03/20 00:49 BiPAP/CPAP I & O 07/02/20 07/02/20 07/03/20 15:00 23:00 07:00 Intake Total 360 ml Balance 360 ml Labs: Laboratory Tests Test 07/03/20 09:50 White Blood Count 6.4 x10^3/uL (4.0-11.0) Red Blood Count 4.60 x10^6/uL (4.30-5.70) Hemoglobin 14.5 g/dL (13.0-17.5) Hematocrit 43.6 % (39.0-53.0) Mean Corpuscular Volume 95 fL (79-100) Mean Corpuscular Hemoglobin 32 pg (25-35) Mean Corpuscular Hemoglobin Concent 33 g/dL (31-37) Red Cell Distribution Width 13.7 % (11.5-14.5) Platelet Count 186 x10^3/uL (140-400) Neutrophils (%) (Auto) 77 % (31-73) H Lymphocytes (%) (Auto) 13 % (24-48) L Monocytes (%) (Auto) 9 % (0-9) Eosinophils (%) (Auto) 0 % (0-3) Basophils (%) (Auto) 1 % (0-3) Neutrophils # (Auto) 5.0 x10^3uL (1.8-7.7) Lymphocytes # (Auto) 0.8 x10^3/uL (1.0-4.8) L Monocytes # (Auto) 0.6 x10^3/uL (0.0-1.1) Eosinophils # (Auto) 0.0 x10^3/uL (0.0-0.7) Basophils # (Auto) 0.1 x10^3/uL (0.0-0.2) D-Dimer (Carrie) 1.05 mg/L (0.00-0.50) H Sodium Level 135 mmol/L (136-145) L Potassium Level 4.1 mmol/L (3.5-5.1) Chloride Level 101 mmol/L (98-107) Carbon Dioxide Level 23 mmol/L (21-32) Anion Gap 11 (6-14) Blood Urea Nitrogen 17 mg/dL (8-26) Creatinine 1.5 mg/dL (0.7-1.3) H Estimated GFR (Cockcroft-Gault) 44.8 BUN/Creatinine Ratio 11 (6-20) Glucose Level 152 mg/dL (70-99) H Calcium Level 8.8 mg/dL (8.5-10.1) Total Bilirubin 0.5 mg/dL (0.2-1.0) Aspartate Amino Transferase (AST) 17 U/L (15-37) Alanine Aminotransferase (ALT) 26 U/L (16-63) Alkaline Phosphatase 77 U/L (46-116) Total Protein 7.1 g/dL (6.4-8.2) Albumin 3.4 g/dL (3.4-5.0) Albumin/Globulin Ratio 0.9 (1.0-1.7) L Current Medications: Meds: Current Medications Medications (Trade) Dose Ordered Sig/Chelsi Route PRN Reason Start Time Stop Time Status Last Admin Dose Admin Aspirin (Aspirin Chewable) 81 mg DAILY PO 07/03/20 09:00 07/03/20 08:55 Cetirizine HCl (ZyrTEC) 10 mg DAILY PO 07/03/20 09:00 07/03/20 08:55 Vitamin D (Vitamin D3) 1,000 unit DAILY PO 07/03/20 09:00 07/03/20 08:53 Clopidogrel Bisulfate (Plavix) 75 mg DAILY PO 07/03/20 09:00 07/03/20 08:53 Lisinopril (Prinivil) 10 mg DAILY PO 07/03/20 09:00 07/03/20 08:53 Ascorbic Acid (Vitamin C) 1,000 mg DAILY PO 07/03/20 09:00 07/03/20 08:55 Multivitamins/ Calcium (Thera-M Plus) 1 tab DAILY PO 07/03/20 09:00 07/03/20 08:53 Lamotrigine (LaMICtal) 25 mg DAILY PO 07/03/20 09:00 07/03/20 08:53 Sertraline HCl (Zoloft) 50 mg DAILY PO 07/03/20 09:00 07/03/20 08:55 Quetiapine Fumarate (SEROquel) 75 mg QHS PO 07/03/20 21:00 07/03/20 20:06 I have reviewed the current psychotropics carefully including drug interactions. Risk benefit ratio favors no change other than as noted in my dictated progress note. Diagnosis: Problems: (1) Impulse control disorder (2) Anxiety disorder, unspecified (3) Bipolar disorder, current episode depressed, mild SHIVAM,MARGARET Ferrera MD Jul 03, 2020 22:08
--- NOTE | 2020-07-03 23:32 | NUR ---
Nursing Note Pt state he hasn't slept in days, and is terribly anxious. He states that "staff took his CPAP machine, that it doesn't work correctly, that he moved the pressure dial on the side of it and he has never used the dial since owning it, his mouth is covered in sores because the CPAP has no water and its tearing up his mouth, that he was sooooo anxious he couldn't even eat dinner!" Pt is red in the face and shaking with anxiety. I talked with him at length about his meds and CPAP machine, told him that RT would check out the machine, that I had PRN's to help him rest, and that I would hold his sudaphed if he wasn't having nasal drainage secondary to his high anxiety state. Pt states his nasal congestion is gone and would really like to sleep this PM. Pt initially refused a snacks, but is now willing to take snacks. Milan from RT here checked out CPAP, now resting well. Had a conversation with his son regarding CPAP earlier in the shift. PRNs effective for now, have a repeat trazodone if needed.
[2020-07-04 06:25] VITALS: BP 108/62
--- NOTE | 2020-07-04 06:45 | PDOC ---
Exam Note: Julian Note: This note is a late entry for 07/03/2020 covers elements not covered in my initial note. Subjective: The patient was reviewed on telehealth rounds in the evening of 07/03/2020 with Javier RIVERA. Discussed with nursing staff, reviewed the chart. Per Javier RIVERA, he slept 3-1/4 hours. He has been anxious, quite depressed today. He has received Zyprexa x2. Later he talked to his on the phone in the evening, was somewhat calmer after that and took a nap. Review of Systems: No CV, , pulmonary, eye, ENT system symptoms on review. Mental Status Exam: The patient is reasonably oriented. Speech is coherent. He is quite anxious, somewhat dysphoric. Abstraction is fair. Computation imp aired. Language function intact. Attention span is short. No suicidal ideation but he feels quite overwhelmed with his anxiety and depression. Laboratory Data: Reviewed. Impression: Bipolar disorder depressed. Major depressive disorder. Anxiety di sorder unspecified. Rest as above. Plan: No change from initial note but we will increase the Seroquel from 50 mg h.s. to 75 mg h.s. Rest unchanged. Assessment: Vital Signs/I&O: Vital Signs Date Time Temp Pulse Resp B/P (MAP) Pulse Ox O2 Delivery O2 Flow Rate FiO2 07/04/20 06:25 98.2 77 16 108/62 (77) 93 07/03/20 00:49 BiPAP/CPAP I & O 07/03/20 07/03/20 07/04/20 15:00 23:00 07:00 Intake Total 600 ml 480 ml Balance 600 ml 480 ml Labs: Laboratory Tests Test 07/03/20 09:50 White Blood Count 6.4 x10^3/uL (4.0-11.0) Red Blood Count 4.60 x10^6/uL (4.30-5.70) Hemoglobin 14.5 g/dL (13.0-17.5) Hematocrit 43.6 % (39.0-53.0) Mean Corpuscular Volume 95 fL (79-100) Mean Corpuscular Hemoglobin 32 pg (25-35) Mean Corpuscular Hemoglobin Concent 33 g/dL (31-37) Red Cell Distribution Width 13.7 % (11.5-14.5) Platelet Count 186 x10^3/uL (140-400) Neutrophils (%) (Auto) 77 % (31-73) H Lymphocytes (%) (Auto) 13 % (24-48) L Monocytes (%) (Auto) 9 % (0-9) Eosinophils (%) (Auto) 0 % (0-3) Basophils (%) (Auto) 1 % (0-3) Neutrophils # (Auto) 5.0 x10^3uL (1.8-7.7) Lymphocytes # (Auto) 0.8 x10^3/uL (1.0-4.8) L Monocytes # (Auto) 0.6 x10^3/uL (0.0-1.1) Eosinophils # (Auto) 0.0 x10^3/uL (0.0-0.7) Basophils # (Auto) 0.1 x10^3/uL (0.0-0.2) D-Dimer (Carrie) 1.05 mg/L (0.00-0.50) H Sodium Level 135 mmol/L (136-145) L Potassium Level 4.1 mmol/L (3.5-5.1) Chloride Level 101 mmol/L (98-107) Carbon Dioxide Level 23 mmol/L (21-32) Anion Gap 11 (6-14) Blood Urea Nitrogen 17 mg/dL (8-26) Creatinine 1.5 mg/dL (0.7-1.3) H Estimated GFR (Cockcroft-Gault) 44.8 BUN/Creatinine Ratio 11 (6-20) Glucose Level 152 mg/dL (70-99) H Calcium Level 8.8 mg/dL (8.5-10.1) Total Bilirubin 0.5 mg/dL (0.2-1.0) Aspartate Amino Transferase (AST) 17 U/L (15-37) Alanine Aminotransferase (ALT) 26 U/L (16-63) Alkaline Phosphatase 77 U/L (46-116) Total Protein 7.1 g/dL (6.4-8.2) Albumin 3.4 g/dL (3.4-5.0) Albumin/Globulin Ratio 0.9 (1.0-1.7) L Current Medications: Meds: Current Medications Medications (Trade) Dose Ordered Sig/Chelsi Route PRN Reason Start Time Stop Time Status Last Admin Dose Admin Aspirin (Aspirin Chewable) 81 mg DAILY PO 07/03/20 09:00 07/03/20 08:55 Cetirizine HCl (ZyrTEC) 10 mg DAILY PO 07/03/20 09:00 07/03/20 08:55 Vitamin D (Vitamin D3) 1,000 unit DAILY PO 07/03/20 09:00 07/03/20 08:53 Clopidogrel Bisulfate (Plavix) 75 mg DAILY PO 07/03/20 09:00 07/03/20 08:53 Lisinopril (Prinivil) 10 mg DAILY PO 07/03/20 09:00 07/03/20 08:53 Ascorbic Acid (Vitamin C) 1,000 mg DAILY PO 07/03/20 09:00 07/03/20 08:55 Multivitamins/ Calcium (Thera-M Plus) 1 tab DAILY PO 07/03/20 09:00 07/03/20 08:53 Lamotrigine (LaMICtal) 25 mg DAILY PO 07/03/20 09:00 07/03/20 08:53 Sertraline HCl (Zoloft) 50 mg DAILY PO 07/03/20 09:00 07/03/20 08:55 Quetiapine Fumarate (SEROquel) 75 mg QHS PO 07/03/20 21:00 07/03/20 20:06 I have reviewed the current psychotropics carefully including drug interactions. Risk benefit ratio favors no change other than as noted in my dictated progress note. Diagnosis: Problems: (1) Impulse control disorder (2) Anxiety disorder, unspecified (3) Bipolar disorder, current episode depressed, mild SHIVAM,MAN Iban RUIZ Jul 04, 2020 06:45
[2020-07-04] MEDS: lamoTRIgine 25 MG TABLET. PO SCH (08:59)
[2020-07-04] MEDS: OMEGA-3 FATTY ACIDS/FISH OIL 1,000 MG CAPSULE. PO SCH ×2 (08:59→19:44)
[2020-07-04] MEDS: ASPIRIN CHEWABLE 81 MG TABLET. PO SCH (08:59)
[2020-07-04] MEDS: CLOPIDOGREL BISULFATE 75 MG TABLET PO SCH (09:00)
[2020-07-04] MEDS: PSEUDOEPHEDRINE ER 120 MG TABLET.ER. PO SCH ×2 (09:00→19:45)
[2020-07-04] MEDS: CHOLECALCIFEROL (VITAMIN D3) 1,000 UNIT TABLET PO SCH (09:00)
[2020-07-04] MEDS: ASCORBIC ACID 500 MG TABLET PO SCH (09:00)
[2020-07-04] MEDS: MULTIVITAMIN with MINERAL TABLET. PO SCH (09:00)
[2020-07-04] MEDS: LISINOPRIL 10 MG TABLET PO SCH (09:00)
[2020-07-04] MEDS: CETIRIZINE HCL 10 MG TABLET PO SCH (09:01)
[2020-07-04] MEDS: SERTRALINE 25 MG TABLET. PO SCH (09:01)
--- NOTE | 2020-07-04 13:03 | NUR ---
Pt is calm, cooperative and compliant. He reports anxiety but stated it's not as bad today as it was yesterday. When asked if he would like to talk to talk about what was making him anxious he stated no. Pt is compliant with his medication and assessment.
[2020-07-04 15:46] VITALS: BP 136/77
--- NOTE | 2020-07-04 15:56 | NUR ---
TOI contacted pt to discuss pt and her concerns for pt at this time. Pt reports that pt has always been anxious; however, since June of last year it worsened and progressively gets worse. Pt reports that pt had 18 ECT treatments and 15 TMS treatments at [facility], in which they have not been successful. Pt does have a counseling and psychologist that he sees but has missed a couple appointments with him being in the hospital. Pt questions if pt may have the start of dementia as she reports that pt has also started repeating himself despite having the conversation 2/3x prior. 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 TOI will continue to keep pt up to date and meet with pt a couple times a week to ensure that he is getting what he needs.
[2020-07-04] MEDS: MIRTAZAPINE ODT 30 MG TAB.RAPDIS. PO SCH (19:44)
[2020-07-04] MEDS: QUEtiapine 50 MG TABLET. PO SCH (19:45)
[2020-07-04] MEDS: ALPRAZolam 0.5 MG TABLET PO PRN (19:47)
[2020-07-04] MEDS: traZODone 50 MG TABLET. PO PRN (19:47)
--- NOTE | 2020-07-04 21:58 | PDOC ---
Exam Note: Julian Note: Please also refer to the separate dictated note~for this date of service dictated separately.~Patient seen individually. Discussed the patient with Nursing staff reviewed the chart.~Reviewed interim history and current functioning. Reviewed vital signs,~Labs/ Radiology~and current medications noted below. Continue current treatment with the changes noted in the dictated addendum note Assessment: Vital Signs/I&O: Vital Signs Date Time Temp Pulse Resp B/P (MAP) Pulse Ox O2 Delivery O2 Flow Rate FiO2 07/04/20 15:46 98.3 92 17 136/77 (96) 91 07/03/20 00:49 BiPAP/CPAP I & O 07/03/20 07/03/20 07/04/20 15:00 23:00 07:00 Intake Total 600 ml 480 ml Balance 600 ml 480 ml Current Medications: I have reviewed the current psychotropics carefully including drug interactions. Risk benefit ratio favors no change other than as noted in my dictated progress note. Diagnosis: Problems: (1) Impulse control disorder (2) Anxiety disorder, unspecified (3) Bipolar disorder, current episode depressed, mild MARGARET LANGLEY MD Jul 04, 2020 21:58
--- NOTE | 2020-07-04 22:10 | NUR ---
Nursing Note Pt in his room, pleasant and cooperative. States that he had a really good night last night and that I was his guardian martin last night for fixing his CPAP and giving him meds to help him rest. He states he had several sleepless nights and feels like he is in a much better place at this point. Smiles on approach, cooperative and compliant. PRN's given for sleep xanax, trazodone and zydis. He stated that he wanted the same meds as last night and feels much improved over his last few days. He talks about having red hair as a younger man and that now he puts a little bit of color in it periodically.
[2020-07-05 06:25] VITALS: BP 164/95
--- NOTE | 2020-07-05 09:15 | NUR ---
ACTIVITY THERAPY ASSESSMENT Completed based on observation, notes, and interview. Pt. was agreeable to speak to POSTAGE MACHINE OPERATOR and he was able to recall facts, details, leisure interest with no problem. He said he had a good day yesterday but today, he wasn't very well rested. He spoke about struggling with some anxiety and stress but really relates it to the quality and amount of sleep he had. He did share he usually naps after lunch when he is at home but sleep right now is an escape. Overall, he appeared a little melancholy with minimal eye contact but was engaged and thankful. He was able to carry a conversation and spoke clearly. Reports indicate Pt. can ruminate on certain things at times but that was not evident during this assessment. Pt. has been seen walking the unit and enjoying the sun light. He reported enjoying the outdoors and spent time doing yard work and gardening at home and enjoyed going camping with his family. He said he's never watched a lot of tv, instead he likes to read (Bible, meaningful/wholesome material), tune into current events once a day, and listen to sacred music (instrumental). He wants to get into woodworking and potentially sell his products. He explained his spiritual relationship is the most important thing to him and he tries really hard not to let himself think negatively. He opened his journal and read aloud some of the gratitudes he's been focusing on. He wants to stimulate his mind as much as he can and is agreeable to join groups while he is here. POSTAGE MACHINE OPERATOR offered getting Pt. a calendar, schedule and a couple more books for him to read. He was appreciative and accepting of those suggestions. POSTAGE MACHINE OPERATOR returned with those items while Pt. was on the phone with his . Pt. handed POSTAGE MACHINE OPERATOR the phone and asked her to speak to his who asked for the address to send Pt a card. POSTAGE MACHINE OPERATOR gave Pt's the address and returned the phone to the nurses station as Pt's conversation was complete. Initial goal aimed to increase stimulation: Pt. will participate in at lease one Activity Therapy group per day.
[2020-07-05] MEDS: CHOLECALCIFEROL (VITAMIN D3) 1,000 UNIT TABLET PO SCH (09:29)
[2020-07-05] MEDS: ASPIRIN CHEWABLE 81 MG TABLET. PO SCH (09:29)
[2020-07-05] MEDS: SERTRALINE 25 MG TABLET. PO SCH (09:29)
[2020-07-05] MEDS: ASCORBIC ACID 500 MG TABLET PO SCH (09:30)
[2020-07-05] MEDS: CLOPIDOGREL BISULFATE 75 MG TABLET PO SCH (09:30)
[2020-07-05] MEDS: MULTIVITAMIN with MINERAL TABLET. PO SCH (09:30)
[2020-07-05] MEDS: lamoTRIgine 25 MG TABLET. PO SCH (09:30)
[2020-07-05] MEDS: CETIRIZINE HCL 10 MG TABLET PO SCH (09:30)
[2020-07-05] MEDS: LISINOPRIL 10 MG TABLET PO SCH (09:30)
[2020-07-05] MEDS: OMEGA-3 FATTY ACIDS/FISH OIL 1,000 MG CAPSULE. PO SCH ×2 (09:30→21:41)
[2020-07-05] MEDS: PSEUDOEPHEDRINE ER 120 MG TABLET.ER. PO SCH ×3 (09:31→21:00)
--- NOTE | 2020-07-05 14:30 | NUR ---
PSYCHOSOCIAL ASSESSMENT ADMISSION DATE: 07/02/20 CONTACT INFORMATION: DPOA/Guardian Contact Name: Mignon Navarrete Contact Address: [address]; [place] [address] Contact Phone #: ETHNIC ORIGIN: REASONS FOR ADMISSION: Anxiety/Panic Depressed Suicidal ideation Other ADDITIONAL ADMISSION COMMENTS: According to the intake, pt is depressed, SI with no plan, daily panic attacks, impaired eating and sleeping, hopeless, poor personal hygiene but A/O x 4. REASON FOR ADMISSION IN PATIENT/FAMILY'S OWN WORDS: Anxiety has progressively worsened since June; "it's more painful than depression". PATIENT/FAMILY EXPECTATIONS FOR ADMISSION: Pt states "I want my mind and emotions to be better, as I'm just in a really tough spot right now". LIVING SITUATION: Patient lives with: Spouse Other living arrangements: Lives with Mignon (DPOA listed above) FAMILY RELATIONS: Marital Status: # of Marriages: 1 # of Children: 6 [facility] Family Support: Cooperative Involved in DC Planning Additional Comments r/t Family: Pt reports meeting his , Mignon, at a religion function in which multiple churches would congregate and through events together for the public. Pt has been to his for 57 years. Together the two raised 6 children: ALL BOYS. SIGNIFICANT PSYCHIATRIC/MEDICAL HISTORY: Psychiatric/Treatment History: This is pt first admission to [facility]. Pt was at [facility] in 2019 and [facility] in 2005. Pt has a dx of MDD Pertinent Family History: Pt brother and sister both suffered from depression. HISTORICAL DATA: Childhood Environment: Stressful Supportive Childhood Environment Additonal Comments: Pt reports that he was born in [place] with 3 brothers and 3 sisters. Pt father worked for the City and his mother worked a little but mostly stayed at home. Pt reports that his mother passed at the age of 64 due to heart trouble. Trauma History: None Is Trauma: Additional Comments: No trauma hx noted. 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 Pt traveled for many years between [place], [place] and [place] to be a Tube Dispatcher in local churches service: N Christianity background: Pt attends the [employer] of [facility]. As a Tube Dispatcher, pt is strong in his link and reports that he Spirituality is always a priority in his life. Pt has not physically attended religion as others in the christian (19) has contracted Covid. "it's safer to be at home". Sexual orientation: Heterosexual Educational Level: Pt reports while working in [place], he attended a religion there and found his calling. Pt attended school in [place], [place] and received his Bachelors in Pastoral Studies. Past/Present Interests/Hobbies: Reading his Bible, walking, wants to start doing more woodworking. Financial support/resources: Group Home/Pension Social Security Monthly income: Person handling finances: Pt handles all finances Do you have a history of legal problems: N Cultural considerations: None SOCIAL RELATIONSHIPS-CURRENT/PAST: Psychiatrist: [facility] Jill Li [facility]) PCP: Dr. 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 Anxiety/Panic Dec. Symp. Depression Decrease Isolation Promote Coping Skill Medication Stabilization Other preliminary treatment comments: DISCHARGE PLANNING: Discharge planning/disposition: Current Living Arrange. Additional discharge needs identified: Continued psychiatric services ADDITIONAL INFORMATION: Other Pertinent Data: SW met with pt to complete PSA. Pt is A/O x4. Pt questioned SW about the schedule of the unit and SW explained to pt that it is a work in progress and to stay tuned as it all can change as we get more patients on the unit. Pt discusses his anxiety as that he does not have much ability to do things (e.g. shave daily, watch the news, talk to his as often). He is getting used to the scheduled but is still a bit anxious about the procedure. Pt also expressed some concern that he is having memory troubles and does not know if this has to do with his depression or if he has beginning stages of Dementia. SW will plan to complete the SLUMS with pt to see if that is an issue as pt has also expressed Memory concerns for pt. Both parties did discuss the factor that Depression can cause memory lapse as well. Pt reports that he is ready to go and wants to discharge soon; but also understands that he doesn't want to discharge too soon as he does not wish to come back later on. Pt did express some concerns about staff and SW will pass that on to the supervisor tank cleaning. Pt and SW will meet up later this week to complete the SLUMS and mentioned having pt discharge closer to the middle of next week. Pt agreed that it may be best and understands that the date can always be moved.
--- NOTE | 2020-07-05 15:32 | NUR ---
Patient has been withdrawn to his room most of this shift. He did participate in the morning group activity. He has generally been calm, depressed, with mild anxiety. He has been cooperative with medications and assessments. Will continue to monitor.
--- NOTE | 2020-07-05 16:00 | NUR ---
Pt. was asleep after lunch and was not woken up to be invited to the afternoon Activity Therapy group. He wished he had been woken up. MACHINE PIE MAKER spoke to Pt. at this time and apologized, explaining the decision to let him sleep was based on their conversation this morning during the Activity Therapy Assessment, when Pt. indicated he didn't feel fully rested today. Pt. smiled and said how he should have been more clear this morning in regards to group and MACHINE PIE MAKER took responsibility for not asking that question this morning. Pt. reported he would like to be woken up for groups if he is asleep. MACHINE PIE MAKER brought the afternoon group project (guymichelle hanQuigo) for Pt. to work on and set up a Jackelyn with classical music playing, independently. Pt. was very appreciative. Addendum: 07/06/20 at 0818 by TIFFANY BARCLAY ACT 07/05/20 at 1630 MACHINE PIE MAKER returned to Pt's room and collected the complete renata Pt. constructed on his own. When asked if he was willing to paint it the next day, he agreed. MACHINE PIE MAKER asked if he wanted to keep the music playing while she brought his project back the the Activity Therapy office overnight. He wanted to keep the music. MACHINE PIE MAKER informed staff that was left with him and to check in to see when he was done with it.
[2020-07-05 16:04] VITALS: BP 120/72
--- NOTE | 2020-07-05 17:28 | TX PLAN ---
Interdisciplinary Tx Plan Admission Information Jul 02, 2020 at 19:20 Legal Status (on Admission): Voluntary DPOA/Guardian Name: Mignon Navarrete Contact Verified Code Status: Full Code Allergies: Coded Allergies: clarithromycin (Verified Allergy, Unknown, ABDOMINAL PAIN, 06/29/20) meperidine (Verified Allergy, Unknown, NAUSEA , 06/29/20) moxifloxacin (Verified Allergy, Unknown, NAUSEA AND VOMITING, 06/29/20) pneumococcal vaccine (Verified Allergy, Unknown, RASH , 06/29/20) Diagnoses Primary Diagnosis: MDD Reasons for Admission: Depressed, Anxiety/Panic, Suicidal ideation, Other Problem in Patient's Words: Anxiety has progressively worsened since June; "it's more painful than depression". Additional Admission Comments: According to the intake, pt is depressed, SI with no plan, daily panic attacks, impaired eating and sleeping, hopeless, poor personal hygiene but A/O x 4. Problems Active Problems: Depression Anxiety Decrease sleep SI with no plan Inactive Problems: Medication management Pt Strengths/Limitations Ability for Howell: Fair Cognitive Functioning/Ability: Fair Communication Skills/Ability: Good Financial Resources: Fair Insight/Judgement: Fair Intellectual Ability: Fair Physical Health: Poor Social Skills: Fair Stability in Family: Good Stability in School/Work: Fair Verbal Skills: Good Discharge Criteria Discharge Criteria: Able meet basic life need, No need for close observ., Adequate arrangements @DC, Verbal commit aftercare, Improved behavior, Improved mood/thought Other Discharge Comments: Safety Plan Preliminary Discharge Plan Preliminary DC Plan: Current Living Arrange. Special Precautions Fall Risk: Low Initial D/C Plan Pt will plan to discharge home with and have outpt services Identified Discharge Needs: Continued psychiatric services Currently Utilized Resources Currently Utilized Resources/P: PCP Psychiatrist at [facility] [place] Identified Problems/Hx/Goals Objectives/Short-Term Goals Short Term Goals: Dec. Anxiety/Panic, Decrease Isolation, Dec. Symp. Depression, Medication Stabilization, Promote Coping Skill Short Term Goals in Patient's: I just want my mind and emotions to be better Interventions/Frequency Staff Interventions/Frequency&: Psychiatrist to assess pt at least 3x per week for medications management. Social Work to assess pt at least 2x per week for discharge planning, care needs and barriers. Nursing to assess medications, behaviors and complete 15 minute checks daily. Encourage group participation (if applicable) or 1:1 engagement based off activity department assessment. 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 Pt attended school in [place], [place] and received his Bachelors in Pastoral Studies. Community Follow-up Continue to see PCP, schedule appt for counseling and psychiatry. Treatment Plan Explained Patient/Computer Programming Supervisor had this treatment plan explained to him/her as indicated by the signature below and has been given the opportunity to ask questions and make suggestions: Date: Patient/Computer Programming Supervisor Signature: Patient/Computer Programming Supervisor Decline: No ( is active in pt care.) Status Update Update As of 07/04, pt was sleeping roughly 7.5 hours a night and eating 75-100% of meals. Pt is extremely anxious and appears to persevere on subjects beyond his control. Pt does participate in group activities and mainly compliant with all staff cares. Pt can be withdrawn at time, but does interact with staff. Pt is on Lamictal 25mg with an increase on 07/10 to 50mg. Pt also takes Cymbalta 30mg daily, Seroquel 75mg a HS and Remeron 7.5mg for sleep. ELOS for pt will be for the middle to the end of next week. LANNY MOORE Jul 05, 2020 17:28
[2020-07-05] MEDS: QUEtiapine 50 MG TABLET. PO SCH (20:28)
[2020-07-05] MEDS: MIRTAZAPINE ODT 30 MG TAB.RAPDIS. PO SCH (20:28)
[2020-07-05] MEDS: traZODone 50 MG TABLET. PO PRN (20:39)
--- NOTE | 2020-07-05 21:44 | PDOC ---
Exam Note: Julian Note: Please also refer to the separate dictated note~for this date of service dictated separately.~Patient seen individually. Discussed the patient with Nursing staff reviewed the chart.~Reviewed interim history and current functioning. Reviewed vital signs,~Labs/ Radiology~and current medications noted below. Continue current treatment with the changes noted in the dictated addendum note Assessment: Vital Signs/I&O: Vital Signs Date Time Temp Pulse Resp B/P (MAP) Pulse Ox O2 Delivery O2 Flow Rate FiO2 07/05/20 16:04 98.1 90 17 120/72 (88) 92 07/03/20 00:49 BiPAP/CPAP I & O 07/04/20 07/04/20 07/05/20 15:00 23:00 07:00 Intake Total 560 ml 360 ml Balance 560 ml 360 ml Current Medications: I have reviewed the current psychotropics carefully including drug interactions. Risk benefit ratio favors no change other than as noted in my dictated progress note. Diagnosis: Problems: (1) Impulse control disorder (2) Anxiety disorder, unspecified (3) Bipolar disorder, current episode depressed, mild MARGARET LANGLEY MD Jul 05, 2020 21:44
--- NOTE | 2020-07-05 22:19 | NUR ---
This evening pt has been in his room he has a depressed affect and has been cooperative. He requested HS PRN trazodone and took meds whole except for sudafed which he would like dcd. He denies SI and has had no behaviors tonight.
[2020-07-06] MEDS: ALPRAZolam 0.5 MG TABLET PO PRN ×2 (02:45→12:43)
--- NOTE | 2020-07-06 02:47 | NUR ---
Nursing Note: Pt up to the nurse's station at this time with c/o feeling anxious and not being able to sleep. PRN Xanax administered as ordered.
[2020-07-06 06:02] VITALS: BP 139/73
--- NOTE | 2020-07-06 06:59 | PDOC ---
Exam Note: Julian Note: This note is a late entry for 07/04/2020 covers elements not covered in my initial note. Subjective: The patient was reviewed on telehealth rounds in the morning for treatment team meeting of 07/04/2020 with Lissa, social service staff and Stacy RIVERA. Discussed with nursing staff, reviewed the chart. The patient was also reviewed on telehealth rounds in the evening. He slept 7 hours previous night and the day before he slept 3-1/2 hours. Appetite is 75%. He has been quite obsessive, anxious about his CPAP machine. I have reviewed the Cytochrome P450 isoenzyme study and metabolic effects on his various psychotropics. Review of the patients past history indicates he did well on lithium in the past. For now we are adjusting the Seroquel and he is doing better and Lamictal has been started. We will monitor this gradually. He was quite obsessive and anxious about his CPAP machine and I addressed this with him. Review of Systems: No CV, , pulmonary, eye, ENT system symptoms on review. Mental Status Exam: The patient is reasonably oriented. Speech is coherent. Abstraction is fair. Computation impaired. Language function intact. Attention span is short. Mood and affect still anxious, labile but improved. No suicidal ideation. Laboratory Data: Reviewed. Impression: Bipolar disorder depressed. Major depressive disorder. Anxiety disorder unspecified. Rest as above. Plan: No change from initial note. Continue to adjust the Lamictal and the Seroquel. Maintain Cymbalta and Remeron. Rest unchanged. Assessment: Vital Signs/I&O: Vital Signs Date Time Temp Pulse Resp B/P (MAP) Pulse Ox O2 Delivery O2 Flow Rate FiO2 07/06/20 06:02 98.2 90 20 139/73 (95) 91 07/03/20 00:49 BiPAP/CPAP I & O 07/05/20 07/05/20 07/06/20 15:00 23:00 07:00 Intake Total 916 ml 436 ml 120 ml Balance 916 ml 436 ml 120 ml Current Medications: I have reviewed the current psychotropics carefully including drug interactions. Risk benefit ratio favors no change other than as noted in my dictated progress note. Diagnosis: Problems: (1) Impulse control disorder (2) Anxiety disorder, unspecified (3) Bipolar disorder, current episode depressed, mild SHIVAM,MAN M Jul 06, 2020 06:59
--- NOTE | 2020-07-06 07:07 | PDOC ---
Exam Note: Julian Note: This note is a late entry for 07/05/2020 covers elements not covered in my initial note. Subjective: The patient was reviewed on telehealth rounds in the evening of 07/05/2020 with Joshua RIVERA. Discussed with nursing staff, reviewed the chart. He still occasionally complains of mouth sores, nothing specific is noted. During the telehealth rounds, he states he feels better mentally. Review of Systems: No CV, , pulmonary, eye, ENT system symptoms on review. Mental Status Exam: The patient is reasonably oriented. Speech is coherent, less pressured. Abstraction is fair. Computation impaired. Language function intact. Attention span is fair. Mood and affect is improved. Laboratory Data: Reviewed. Impression: Bipolar disorder depressed. Major depressive disorder. Anxiety disorder unspecified. Rest as above. Plan: No change from initial note. Assessment: Vital Signs/I&O: Vital Signs Date Time Temp Pulse Resp B/P (MAP) Pulse Ox O2 Delivery O2 Flow Rate FiO2 07/06/20 06:02 98.2 90 20 139/73 (95) 91 07/03/20 00:49 BiPAP/CPAP I & O 07/05/20 07/05/20 07/06/20 15:00 23:00 07:00 Intake Total 916 ml 436 ml 120 ml Balance 916 ml 436 ml 120 ml Current Medications: I have reviewed the current psychotropics carefully including drug interactions. Risk benefit ratio favors no change other than as noted in my dictated progress note. Diagnosis: Problems: (1) Impulse control disorder (2) Anxiety disorder, unspecified (3) Bipolar disorder, current episode depressed, mild SHIVAM,MAN M Jul 06, 2020 07:07
[2020-07-06] MEDS: CHOLECALCIFEROL (VITAMIN D3) 1,000 UNIT TABLET PO SCH (09:46)
[2020-07-06] MEDS: ASPIRIN CHEWABLE 81 MG TABLET. PO SCH (09:46)
[2020-07-06] MEDS: ASCORBIC ACID 500 MG TABLET PO SCH (09:47)
[2020-07-06] MEDS: OMEGA-3 FATTY ACIDS/FISH OIL 1,000 MG CAPSULE. PO SCH ×2 (09:47→20:23)
[2020-07-06] MEDS: SERTRALINE 25 MG TABLET. PO SCH (09:47)
[2020-07-06] MEDS: MULTIVITAMIN with MINERAL TABLET. PO SCH (09:47)
[2020-07-06] MEDS: CETIRIZINE HCL 10 MG TABLET PO SCH (09:47)
[2020-07-06] MEDS: CLOPIDOGREL BISULFATE 75 MG TABLET PO SCH (09:47)
[2020-07-06] MEDS: LISINOPRIL 10 MG TABLET PO SCH (09:48)
[2020-07-06] MEDS: lamoTRIgine 25 MG TABLET. PO SCH (09:48)
--- NOTE | 2020-07-06 11:26 | NUR ---
Patient sitting calmly in his room with his bedside table in front of him, wearing his CPAP and reading a book. When asked why he was wearing the CPAP in the daytime, he stated that he was wearing it because it "helps him breathe better". Patient is pleasant and interactive when approached. Patient has a depressed demeanor, he looks sad. Patient has the daily schedule on his bedside table and appears to be checking off activities/groups as he does them. He was compliant with medications, taking them whole with water. Nurse filled his ice water and got him a cloth wash cloth and towel per his request. He stated he needed the wash cloth and towel as he could not wash up with those small paper towels from the dispenser. Patient denies SI when asked and stated that he does not feel particularly anxious at this time but he does feel sad and depressed. Patient ate 100% of his meal at breakfast and he slept 8 hours last night,
--- NOTE | 2020-07-06 12:45 | NUR ---
Patient came to nurse and asked for something for anxiety. Nurse talked with him about anxiety, he reports he isn't anxious about something in particular. We discussed journaling, relaxation techniques and generalized anxiety. Patient stated he still feels anxious. PRN xanax provided per orderfor anxiety. Addendum: 07/06/20 at 1553 by PATRICK RAMOS RN Patient participated in group outside. Patient has stated that he is still anxious and medication was not effective.
[2020-07-06 15:39] VITALS: BP 153/79
[2020-07-06] MEDS: traZODone 50 MG TABLET. PO PRN (20:23)
[2020-07-06] MEDS: MIRTAZAPINE ODT 30 MG TAB.RAPDIS. PO SCH (20:23)
[2020-07-06] MEDS: QUEtiapine 50 MG TABLET. PO SCH (20:24)
--- NOTE | 2020-07-06 21:59 | PDOC ---
Exam Note: Julian Note: Please also refer to the separate dictated note~for this date of service dictated separately.~Patient seen individually. Discussed the patient with Nursing staff reviewed the chart.~Reviewed interim history and current functioning. Reviewed vital signs,~Labs/ Radiology~and current medications noted below. Continue current treatment with the changes noted in the dictated addendum note Assessment: Vital Signs/I&O: Vital Signs Date Time Temp Pulse Resp B/P (MAP) Pulse Ox O2 Delivery O2 Flow Rate FiO2 07/06/20 20:54 98.1 92 07/06/20 15:39 96 18 153/79 (103) 07/03/20 00:49 BiPAP/CPAP I & O 0 07/05/20 07/05/20 07/06/20 15:00 23:00 07:00 Intake Total 916 ml 436 ml 120 ml Balance 916 ml 436 ml 120 ml Current Medications: Meds: Current Medications Medications (Trade) Dose Ordered Sig/Chelsi Route PRN Reason Start Time Stop Time Status Last Admin Dose Admin Quetiapine Fumarate (SEROquel) 100 mg QHS PO 07/06/20 21:00 07/06/20 20:24 I have reviewed the current psychotropics carefully including drug interactions. Risk benefit ratio favors no change other than as noted in my dictated progress note. Diagnosis: Problems: (1) Impulse control disorder (2) Anxiety disorder, unspecified (3) Bipolar disorder, current episode depressed, mild SHIVAM,MARGARET Ferrera MD Jul 06, 2020 21:59
--- NOTE | 2020-07-07 01:32 | NUR ---
Pt has been in his room this shift and mainly sleeping. When awaken for meds he was cooperative with a depressed demeanor. He was glad the dr is adjusting his meds and is hopeful it can help resolve his depression and anxiety issues. He denies SI,HI and plans to go back to live his of 59 years in [place], [place].
[2020-07-07 06:28] VITALS: BP 138/79
--- NOTE | 2020-07-07 07:37 | PDOC ---
Exam Note: Julian Note: This note is a late entry for 07/06/2020 covers elements not covered in my initial note. Subjective: The patient was reviewed on telehealth rounds in the evening of 07/06/2020 with Veena RIVERA. Discussed with nursing staff, reviewed the chart. He slept 8 hours previous night. He was seen on telehealth rounds in the evening. He has been somewhat sad and anxious today. Received Xanax at 2.45 a.m. this morning, then again at 12.45 p.m. and Zyprexa p.r.n. at 3.30 p.m. The patient states at home he tries to keep himself busy and therefore gets less anxious and depressed but he has fewer activities here. We processed ways to increase his activities and other stimuli to help reduce the empty time which worsens his mood and anxiety. Review of Systems: No CV, , pulmonary, eye system symptoms on review. Mental Status Exam: The patient is reasonably oriented. Speech is coherent. Abstraction is fair. Computation impaired. Language function intact. Mood and affect somewhat anxious, still depressed, labile but better than before. No suicidal or homicidal ideation. Laboratory Data: Reviewed. Impression: Bipolar disorder depressed. Major depressive disorder. Anxiety disorder unspecified. Rest as above. Plan: I had considered adding lithium since he did very well on lithium in the past but his GFR is 45 and creatinine is 1.5. We will avoid this. We will increase the Seroquel from 75 mg h.s. to 100 mg h.s. Gradually increase the Lamictal. Maintain Zoloft 50 mg a day, may need to increase this in due course. Continue Remeron 30 mg h.s., trazodone 50 mg h.s. Adjust further as clinically indicated. Assessment: Vital Signs/I&O: Vital Signs Date Time Temp Pulse Resp B/P (MAP) Pulse Ox O2 Delivery O2 Flow Rate FiO2 07/07/20 06:28 98.0 79 18 138/79 (98) 94 Room Air I & O 07/06/20 07/06/20 07/07/20 15:00 23:00 07:00 Intake Total 600 ml 320 ml Balance 600 ml 320 ml Current Medications: Meds: Current Medications Medications (Trade) Dose Ordered Sig/Chelsi Route PRN Reason Start Time Stop Time Status Last Admin Dose Admin Quetiapine Fumarate (SEROquel) 100 mg QHS PO 07/06/20 21:00 07/06/20 20:24 I have reviewed the current psychotropics carefully including drug interactions. Risk benefit ratio favors no change other than as noted in my dictated progress note. Diagnosis: Problems: (1) Impulse control disorder (2) Anxiety disorder, unspecified (3) Bipolar disorder, current episode depressed, mild SHIVAM,MAN Iban RUIZ Jul 07, 2020 07:37
[2020-07-07] MEDS: MULTIVITAMIN with MINERAL TABLET. PO SCH (09:22)
[2020-07-07] MEDS: CHOLECALCIFEROL (VITAMIN D3) 1,000 UNIT TABLET PO SCH (09:22)
[2020-07-07] MEDS: CETIRIZINE HCL 10 MG TABLET PO SCH (09:23)
[2020-07-07] MEDS: SERTRALINE 25 MG TABLET. PO SCH (09:23)
[2020-07-07] MEDS: CLOPIDOGREL BISULFATE 75 MG TABLET PO SCH (09:23)
[2020-07-07] MEDS: ASPIRIN CHEWABLE 81 MG TABLET. PO SCH (09:23)
[2020-07-07] MEDS: LISINOPRIL 10 MG TABLET PO SCH (09:23)
[2020-07-07] MEDS: lamoTRIgine 25 MG TABLET. PO SCH (09:23)
[2020-07-07] MEDS: ASCORBIC ACID 500 MG TABLET PO SCH (09:23)
[2020-07-07] MEDS: OMEGA-3 FATTY ACIDS/FISH OIL 1,000 MG CAPSULE. PO SCH ×2 (09:23→19:59)
[2020-07-07 15:19] VITALS: BP 138/78
--- NOTE | 2020-07-07 17:15 | NUR ---
SW contacted pt to discuss pt wish to discharge AMA. He reports that he no longer wants to be here and feels that he would be better off at home. Pt reports that they spoke and she was able to talk pt into staying overnight as it is later and would take her over an hour to get here. Pt and SW discussed that pt is having a lot of down time and it is not doing him any good. Pt has books in his room and the nurse offered pt things to do to pass the time. SW informed pt that initially pt and SW discussed discharge for Friday 07/13 and pt appeared to be fine. Pt reports that his birthday is [birth year] and wonders if that has to deal with his wish to be out sooner. SW will talk to pt in the morning to discuss why AMA is not appropriate and call pt with the final result. Addendum: 07/08/20 at 1232 by LANNY CM Please note that this phone call happened 07/07 @ 1915; NOT 1715.
--- NOTE | 2020-07-07 17:48 | NUR ---
Patient has been withdrawn to his room most of this shift. He did participate in the morning group activity, and has made several phone calls to his . He has generally been calm, depressed, with mild anxiety; he has been using the [employer] set to play piano relaxation music channel to help. He has been cooperative with medications and assessments. Will continue to monitor.
--- NOTE | 2020-07-07 18:30 | NUR ---
Patient's called stating that she worried because patient called her and insisted that she pick him up tonight otherwise she would not like what happened. Asked patient how he was feeling and he said he was at his end and could not stay here any longer. He stated that he was alright while in group activities, but spending time in his room and reading was becoming unbearable. When asked, he did accept the opportunity to look in the leisure cabinet and select new reading material; he refused any prn medications, he still intends to leave AMA. Patient's called and informed patient wants to leave AMA and the hospital cannot keep him involuntarily unless he poses a risk to himself. vegetable farming supervisor informed and paged. Patient is currently talking to his . Will continue to monitor and report to oncoming shift.
--- NOTE | 2020-07-07 19:15 | NUR ---
After talking with his , patient has agreed to stay until tomorrow morning. MD TOI, and subwarehouse supervisor informed.
[2020-07-07] MEDS: MIRTAZAPINE ODT 30 MG TAB.RAPDIS. PO SCH (19:58)
[2020-07-07] MEDS: QUEtiapine 50 MG TABLET. PO SCH (19:59)
[2020-07-07] MEDS: traZODone 50 MG TABLET. PO PRN (19:59)
--- NOTE | 2020-07-07 21:44 | NUR ---
Interactions were very limited and brief this PM shift. Pt stated on initial conversation "I have not had a very good day". Pt did not elaborate and I continued to round but did not attempt to conversate with pt any further. Asked pt. if they wanted a snack and pt. responded "i have everything I need" while indicating water cup and fig neuton on table.
--- NOTE | 2020-07-07 21:58 | PDOC ---
Exam Note: Julian Note: Please also refer to the separate dictated note~for this date of service dictated separately.~Patient seen individually. Discussed the patient with Nursing staff reviewed the chart.~Reviewed interim history and current functioning. Reviewed vital signs,~Labs/ Radiology~and current medications noted below. Continue current treatment with the changes noted in the dictated addendum note Assessment: Vital Signs/I&O: Vital Signs Date Time Temp Pulse Resp B/P (MAP) Pulse Ox O2 Delivery O2 Flow Rate FiO2 07/07/20 15:19 98.6 81 17 138/78 (98) 92 Room Air I & O 07/06/20 07/06/20 07/07/20 15:00 23:00 07:00 Intake Total 600 ml 320 ml Balance 600 ml 320 ml Current Medications: I have reviewed the current psychotropics carefully including drug interactions. Risk benefit ratio favors no change other than as noted in my dictated progress note. Diagnosis: Problems: (1) Impulse control disorder (2) Anxiety disorder, unspecified (3) Bipolar disorder, current episode depressed, mild SHIVAM,MARGARET Ferrera MD Jul 07, 2020 21:58
[2020-07-07] MEDS: ALPRAZolam 0.5 MG TABLET PO PRN (22:43)
--- NOTE | 2020-07-08 00:53 | NUR ---
Early in this shift pt was on the phone and took his meds without problems. PRN trinax given at 2250 on request saying he could not sleep. When talking with him he said he was in a trap here and that I know what is going on but would not elaborate.
--- NOTE | 2020-07-08 01:47 | NUR ---
Since PRN was given pt appears to be sleeping.
[2020-07-08 05:55] VITALS: BP 134/78
[2020-07-08] MEDS: LISINOPRIL 10 MG TABLET PO SCH (09:05)
[2020-07-08] MEDS: CHOLECALCIFEROL (VITAMIN D3) 1,000 UNIT TABLET PO SCH (09:05)
[2020-07-08] MEDS: CETIRIZINE HCL 10 MG TABLET PO SCH (09:05)
[2020-07-08] MEDS: ASPIRIN CHEWABLE 81 MG TABLET. PO SCH (09:05)
[2020-07-08] MEDS: OMEGA-3 FATTY ACIDS/FISH OIL 1,000 MG CAPSULE. PO SCH ×2 (09:05→21:03)
[2020-07-08] MEDS: MULTIVITAMIN with MINERAL TABLET. PO SCH (09:05)
[2020-07-08] MEDS: CLOPIDOGREL BISULFATE 75 MG TABLET PO SCH (09:05)
[2020-07-08] MEDS: ASCORBIC ACID 500 MG TABLET PO SCH (09:05)
[2020-07-08] MEDS: SERTRALINE 25 MG TABLET. PO SCH (09:05)
[2020-07-08] MEDS: lamoTRIgine 25 MG TABLET. PO SCH (09:06)
--- NOTE | 2020-07-08 09:12 | NUR ---
NETWORK ADMINISTRATOR entered Pt's room at 0835 to see how Pt. was doing, offered to go for a walk or get some fresh air; however, Pt. declined. He reported he was not doing well and was ready to leave. He said he wouldn't make it if he had to stay here any longer. He did not elaborate when NETWORK ADMINISTRATOR asked what that meant. He said he was told he could sign himself in and sign himself out whenever he wants. He wanted to call his and felt like he was not being heard when when he asked for the phone earlier. He talked about being given a brief when he doesn't need that and how it was humiliating, he showed NETWORK ADMINISTRATOR a "girly" shirt he was given to wear but said he doesn't wear those types of shirts, he has his own white ones he wears. He also reported he didn't sleep well at all last night and reiterated that he wanted to leave today. NETWORK ADMINISTRATOR explained the unit needs at the moment, her limitations with the discharge process, but assured him she would find out more information on getting a phone and look into his own clothes. Addendum: 07/08/20 at 0901 by TIFFANY BARCLAY ACT Pt had a phone call before NETWORK ADMINISTRATOR was able to give him the phone to make a call. He has been on the phone since then and staff hears him repeating "I signed myself in, I can sign myself out."
--- NOTE | 2020-07-08 10:00 | NUR ---
Patient compliant with medications, taken whole with water. HS nurse told this nurse in report that patient is considering leaving AMA. TOI and Dr Moran aware.
--- NOTE | 2020-07-08 12:44 | NUR ---
SW met with pt and discussed why he wishes to leave AMA. Pt reports that he does not need to be here and does not feel this is going to do anything for him. SW understood that pt was talked to about the protocols for AMA and SW expressed grave concern that he would not leave with enough medications or any medications at all and how worrisome that is for not just staff but his and family. Pt stated "well I'm worried too but I do not want to stay here". SW contacted pt and discussed pt wish to discharge today. Pt is very concerned about medications and not having any. SW will be able to contact Dr. Moran and see what options we have. Pt is A/O x 4 and getting his DPOA inacted would not be appropriate. SW will contact Mignon back with the final decision and potential discharge plan.
--- NOTE | 2020-07-08 13:21 | NUR ---
[facility] Social Work Discharge Planning Form Patient Name SRIDHAR KNUTSON Admit Date: 07/02/2020 DISCHARGE PLAN Discharge Destination: Pt to discharge home with . Care Assessment:N/A Level II Assessment: N/A Transportation: Pt to pick pt up between 330 and 400 Special Instructions/Notes: Please fax the discharge information to the fax numbers listed below. DISCHARGE TO HOME: Address: [address] [place] [address] ; [place] [address] Responsible [employer]: Pt is a self-sign [facility]acy: [facility] Contact Information: [address] [place] [address] Psychiatrist/Mental Health Follow Up: Dr. Jill Cerrato Contact Information: [address] [facility], [address]; [place] [address] Appointment: Will schedule appointment with pt and pt Primary Care Follow Up: Dr. Osorio Salas Contact Information: [address] , [place] [address] Appointment: Wednesday 07/11 @ 113
--- NOTE | 2020-07-08 13:48 | NUR ---
Patient has been stating that he is leaving today. His daughter called to speak with him, he told this nurse she is also a nurse. Patient spoke with SW and continues to say he wants to leave AMA. Dr. Moran contacted and stated that patient can have a seven day prescription for zoloft. Patient provided AMA information and form. Patients spouse is scheduled to pick patient up between [id number]. Patient has asked nurse for some anti-anxiety medication, stating he feel anxious. PRN xanax provided per doctor order for anxiety.
[2020-07-08] MEDS: ALPRAZolam 0.5 MG TABLET PO PRN ×2 (14:00→18:18)
--- NOTE | 2020-07-08 14:05 | NUR ---
Pt requested to speak to SW about his options. He asked what would happen if he decided to go. SW explained that he would still be considered AMA; however, as SW was able to get him in to see his PCP this coming week, he would be able to get 7 days of medication. If pt decided to stay, SW would be able to get him to at least Saturday, speak with the psychiatrist and get pt discharged as an approved status versus AMA. Pt is just very concerned about being so enclosed, as it creates anxiety for him. He also mentioned understanding that there used to be more activities and under the circumstances that has declined. SW was able to confirm pt thoughts and feelings; explaining to him that downtime for a pt with anxiety, makes it worse. A lot of time, those with anxiety must be moving all the time as it truly does decrease the amount of time we have to think or ruminate on things. Pt agreed and discussed with SW sleeping to pass time and decrease thoughts; however, you can only do so much of that Pt agreed to discharge Saturday as long as it is routine and not AMA. Pt is contacting his to let her know that he will plan to stay on Saturday and discuss transport time with her.
[2020-07-08] MEDS ORDERED: SERT50TA PO (14:28)
--- NOTE | 2020-07-08 15:06 | NUR ---
It was reported to this nurse that patient has again spoken with his social service worker and has now decided to stay and not go AMA.
[2020-07-08 15:27] VITALS: BP 124/74
--- NOTE | 2020-07-08 18:18 | NUR ---
Patient reports feeling anxious and has requested a PRN xanax. PRN xanax provided per dr order for anxiety.
--- NOTE | 2020-07-08 21:00 | NUR ---
Patient is in his room on assumption of care, awake in bed. He is calm, cooperative and compliant with assessments and medications taken whole. Denies any pain or discomfort. No complaints of anxiety. Patient has not expressed the desire to leave the unit AMA this evening. Denies SI.
[2020-07-08] MEDS: MIRTAZAPINE ODT 30 MG TAB.RAPDIS. PO SCH (21:04)
[2020-07-08] MEDS: QUEtiapine 50 MG TABLET. PO SCH (21:04)
--- NOTE | 2020-07-08 21:57 | PDOC ---
Exam Note: Julian Note: Please also refer to the separate dictated note~for this date of service dictated separately.~Patient seen individually. Discussed the patient with Nursing staff reviewed the chart.~Reviewed interim history and current functioning. Reviewed vital signs,~Labs/ Radiology~and current medications noted below. Continue current treatment with the changes noted in the dictated addendum note Assessment: Vital Signs/I&O: Vital Signs Date Time Temp Pulse Resp B/P (MAP) Pulse Ox O2 Delivery O2 Flow Rate FiO2 07/08/20 15:27 99.0 85 18 124/74 (91) 07/08/20 05:55 95 07/07/20 15:19 Room Air I & O 07/07/20 07/07/20 07/08/20 15:00 23:00 07:00 Intake Total 320 ml 120 ml Balance 320 ml 120 ml Current Medications: I have reviewed the current psychotropics carefully including drug interactions. Risk benefit ratio favors no change other than as noted in my dictated progress note. Diagnosis: Problems: (1) Impulse control disorder (2) Anxiety disorder, unspecified (3) Bipolar disorder, current episode depressed, mild (4) MDD (major depressive disorder) MARGARET LANGLEY MD Jul 08, 2020 21:57
--- NOTE | 2020-07-09 01:41 | NUR ---
Pt. pleasant and cooperative with interactions. Offered pt snack & pt declined. Pt. was observed in room writing in notebook. Pt. self toileted and got self ready for bed.
[2020-07-09 05:00] VITALS: BP 149/84
--- NOTE | 2020-07-09 06:48 | PDOC ---
Exam Note: Julian Note: This note is a late entry for 07/07/2020 covers elements not covered in my initial note. Subjective: The patient was reviewed on telehealth rounds in the evening of 07/07/2020 with Joshua RIVERA. Discussed with nursing staff, reviewed the chart. He slept 8 hours previous night. Overall he has had a good day during the day but by the time I reviewed him on telehealth rounds in the evening he stated he had a lot of free time in the evening, was getting more anxious. Later I was called by the nursing staff at night. He was wanting to leave AMA. We had multiple calls with nursing staff and connected him with his and then he ultimately agreed to stay overnight. Review of Systems: No CV, , pulmonary, eye system symptoms on review. Mental Status Exam: The patient is reasonably oriented. Speech is coherent, rapid at times.. Abstraction is fair. Computation impaired. Mood and affect anxious, labile. Laboratory Data: Reviewed. Impression: Bipolar disorder depressed. Major depressive disorder. Anxiety disorder unspecified. Rest as above. Plan: No change from initial note but if mood lability persists, we may need to increase Seroquel. Assessment: Vital Signs/I&O: Vital Signs Date Time Temp Pulse Resp B/P (MAP) Pulse Ox O2 Delivery O2 Flow Rate FiO2 07/09/20 05:00 97.8 78 18 149/84 (105) 91 Room Air I & O 07/08/20 07/08/20 07/09/20 15:00 23:00 07:00 Intake Total 545 ml 360 ml 0 ml Balance 545 ml 360 ml 0 ml Current Medications: I have reviewed the current psychotropics carefully including drug interactions. Risk benefit ratio favors no change other than as noted in my dictated progress note. Diagnosis: Problems: (1) Impulse control disorder (2) Anxiety disorder, unspecified (3) Bipolar disorder, current episode depressed, mild (4) MDD (major depressive disorder) MARGARET LANGLEY MD Jul 09, 2020 06:48
--- NOTE | 2020-07-09 07:01 | PDOC ---
Exam Note: Julian Note: This note is a late entry for 07/08/2020 covers elements not covered in my initial note. Subjective: The patient was reviewed on telehealth rounds in the evening of 07/08/2020 with Veena RIVERA. Discussed with nursing staff, reviewed the chart. He slept 7 hours previous night. We had multiple communications with Lissa, social service staff and nursing staff and it helped. The patient was once again demanding to leave AMA but then stated he did not want to leave AMA and would stay over the weekend. Review of Systems: No CV, , pulmonary, eye system symptoms on review. Mental Status Exam: The patient is reasonably oriented, quite anxious, somewhat labile but o suicidal or homicidal ideation. Speech is coherent. Abstraction is fair. Computation impaired. Language function intact. Mood and affect somewhat anxious, labile. No clear psychotic symptoms. Attention span is fair. Laboratory Data: Reviewed. Impression: Bipolar disorder depressed. Major depressive disorder. Anxiety disorder unspecified. Rest as above. Plan: Continue current psychotropics from initial note. He did receive Xanax p.r.n. earlier in the day and he can have it 3 times a day p.r.n. anxiety, seems to be helpful. We may need to increase Seroquel in due course. Assessment: Vital Signs/I&O: Vital Signs Date Time Temp Pulse Resp B/P (MAP) Pulse Ox O2 Delivery O2 Flow Rate FiO2 07/09/20 05:00 97.8 78 18 149/84 (105) 91 Room Air I & O 07/08/20 07/08/20 07/09/20 15:00 23:00 07:00 Intake Total 545 ml 360 ml 0 ml Balance 545 ml 360 ml 0 ml Current Medications: I have reviewed the current psychotropics carefully including drug interactions. Risk benefit ratio favors no change other than as noted in my dictated progress note. Diagnosis: Problems: (1) Impulse control disorder (2) Anxiety disorder, unspecified (3) Bipolar disorder, current episode depressed, mild (4) MDD (major depressive disorder) MARGARET LANGLEY MD Jul 09, 2020 07:01
[2020-07-09] MEDS: OMEGA-3 FATTY ACIDS/FISH OIL 1,000 MG CAPSULE. PO SCH ×2 (08:34→20:39)
[2020-07-09] MEDS: LISINOPRIL 10 MG TABLET PO SCH (08:34)
[2020-07-09] MEDS: lamoTRIgine 25 MG TABLET. PO SCH (08:34)
[2020-07-09] MEDS: MULTIVITAMIN with MINERAL TABLET. PO SCH (08:34)
[2020-07-09] MEDS: CLOPIDOGREL BISULFATE 75 MG TABLET PO SCH (08:34)
[2020-07-09] MEDS: ASPIRIN CHEWABLE 81 MG TABLET. PO SCH (08:34)
[2020-07-09] MEDS: CHOLECALCIFEROL (VITAMIN D3) 1,000 UNIT TABLET PO SCH (08:35)
[2020-07-09] MEDS: CETIRIZINE HCL 10 MG TABLET PO SCH (08:35)
[2020-07-09] MEDS: ASCORBIC ACID 500 MG TABLET PO SCH (08:35)
[2020-07-09] MEDS: SERTRALINE 25 MG TABLET. PO SCH (08:35)
--- NOTE | 2020-07-09 10:39 | NUR ---
Pt is calm, cooperative and compliant. He reports no anxiety today. No agitation, no aggression, no hallucination, no delusions noted. Pt is compliant with his medication and assessment.
[2020-07-09 11:07] LABS: BASO % 1 % (0-3); EOS # 0.1 x10^3/uL (0.0-0.7); EOS % 1 % (0-3); HEMATOCRIT 42.8 % (39.0-53.0); HEMOGLOBIN 14.2 g/dL (13.0-17.5); LYMPH # 1.1 x10^3/uL (1.0-4.8); LYMPH % 17 % (24-48); MEAN CORPUSCULAR HEMOGLOBIN 32 pg (25-35); MEAN CORPUSCULAR HGB CONC 33 g/dL (31-37); MEAN CORPUSCULAR VOLUME 95 fL (79-100); MONO # 0.6 x10^3/uL (0.0-1.1); MONO % 9 % (0-9); NEUT # 4.6 x10^3uL (1.8-7.7); NEUT % 72 % (31-73); PLATELET COUNT 180 x10^3/uL (140-400); RED BLOOD COUNT 4.51 x10^6/uL (4.30-5.70); RED CELL DISTRIBUTION WIDTH 13.8 % (11.5-14.5); WHITE BLOOD COUNT 6.4 x10^3/uL (4.0-11.0)
[2020-07-09 11:15] LABS: ALBUMIN 3.2 g/dL (3.4-5.0); ALBUMIN/GLOBULIN RATIO 0.9 (1.0-1.7); CALCIUM 8.5 mg/dL (8.5-10.1); CREATININE 1.6 mg/dL (0.7-1.3); GFR 41.6; POTASSIUM 4.2 mmol/L (3.5-5.1); TOTAL BILIRUBIN 0.3 mg/dL (0.2-1.0); TOTAL PROTEIN 6.6 g/dL (6.4-8.2)
[2020-07-09] MEDS: ALPRAZolam 0.5 MG TABLET PO PRN ×2 (14:09→17:25)
[2020-07-09 15:00] VITALS: BP 101/62
[2020-07-09 15:55] LABS: % EOS 1 % (0-5); % LYMPHS 17 % (24-48); % METAS 1 % (0-0); % MONOS 6 % (0-10); % SEGS 75 % (35-66); PLT ESTIMATE ADEQUATE (ADEQUATE)
--- NOTE | 2020-07-09 17:25 | NUR ---
Pt requesting PRN xanax stating he feels "terribly anxious." When asked what his trigger was he stated "feeling lost." Nurse provided emotional support and validated pt feelings.
[2020-07-09] MEDS: QUEtiapine 50 MG TABLET. PO SCH (20:40)
[2020-07-09] MEDS: MIRTAZAPINE ODT 30 MG TAB.RAPDIS. PO SCH (20:40)
--- NOTE | 2020-07-09 21:00 | NUR ---
Patient is in his room on assumption of care, awake in bed. He is calm, cooperative and compliant with assessments and medications taken whole. Denies any pain or discomfort. No complaints of anxiety. Patient has not expressed the desire to leave the unit AMA this evening. Denies SI. Addendum: 07/09/20 at 2207 by FRANKLYN MARTINES RN RN duplicate note entered in error
--- NOTE | 2020-07-09 21:14 | NUR ---
Pt. pleasant on interaction. Pt declined snack when offered. Assisted pt with adding sterile water to cpap.
--- NOTE | 2020-07-09 22:05 | PDOC ---
Exam Note: Julian Note: Please also refer to the separate dictated note~for this date of service dictated separately.~Patient seen individually. Discussed the patient with Nursing staff reviewed the chart.~Reviewed interim history and current functioning. Reviewed vital signs,~Labs/ Radiology~and current medications noted below. Continue current treatment with the changes noted in the dictated addendum note Assessment: Vital Signs/I&O: Vital Signs Date Time Temp Pulse Resp B/P (MAP) Pulse Ox O2 Delivery O2 Flow Rate FiO2 07/09/20 15:00 97.9 76 22 101/62 (75) 98 Room Air I & O 07/08/20 07/08/20 07/09/20 15:00 23:00 07:00 Intake Total 545 ml 360 ml 0 ml Balance 545 ml 360 ml 0 ml Labs: Laboratory Tests Test 07/09/20 10:23 White Blood Count 6.4 x10^3/uL (4.0-11.0) Red Blood Count 4.51 x10^6/uL (4.30-5.70) Hemoglobin 14.2 g/dL (13.0-17.5) Hematocrit 42.8 % (39.0-53.0) Mean Corpuscular Volume 95 fL (79-100) Mean Corpuscular Hemoglobin 32 pg (25-35) Mean Corpuscular Hemoglobin Concent 33 g/dL (31-37) Red Cell Distribution Width 13.8 % (11.5-14.5) Platelet Count 180 x10^3/uL (140-400) Neutrophils (%) (Auto) 72 % (31-73) Lymphocytes (%) (Auto) 17 % (24-48) L Monocytes (%) (Auto) 9 % (0-9) Eosinophils (%) (Auto) 1 % (0-3) Basophils (%) (Auto) 1 % (0-3) Neutrophils # (Auto) 4.6 x10^3uL (1.8-7.7) Lymphocytes # (Auto) 1.1 x10^3/uL (1.0-4.8) Monocytes # (Auto) 0.6 x10^3/uL (0.0-1.1) Eosinophils # (Auto) 0.1 x10^3/uL (0.0-0.7) Basophils # (Auto) 0.0 x10^3/uL (0.0-0.2) Segmented Neutrophils % 75 % (35-66) H Lymphocytes % 17 % (24-48) L Monocytes % 6 % (0-10) Eosinophils % 1 % (0-5) Metamyelocytes % 1 % (0-0) H Platelet Estimate Adequate (ADEQUATE) Sodium Level 137 mmol/L (136-145) Potassium Level 4.2 mmol/L (3.5-5.1) Chloride Level 103 mmol/L (98-107) Carbon Dioxide Level 23 mmol/L (21-32) Anion Gap 11 (6-14) Blood Urea Nitrogen 27 mg/dL (8-26) H Creatinine 1.6 mg/dL (0.7-1.3) H Estimated GFR (Cockcroft-Gault) 41.6 BUN/Creatinine Ratio 17 (6-20) Glucose Level 155 mg/dL (70-99) H Calcium Level 8.5 mg/dL (8.5-10.1) Total Bilirubin 0.3 mg/dL (0.2-1.0) Aspartate Amino Transferase (AST) 20 U/L (15-37) Alanine Aminotransferase (ALT) 33 U/L (16-63) Alkaline Phosphatase 73 U/L (46-116) Total Protein 6.6 g/dL (6.4-8.2) Albumin 3.2 g/dL (3.4-5.0) L Albumin/Globulin Ratio 0.9 (1.0-1.7) L Current Medications: I have reviewed the current psychotropics carefully including drug interactions. Risk benefit ratio favors no change other than as noted in my dictated progress note. Diagnosis: Problems: (1) Impulse control disorder (2) Anxiety disorder, unspecified (3) Bipolar disorder, current episode depressed, mild (4) MDD (major depressive disorder) MARGARET LANGLEY MD Jul 09, 2020 22:05
[2020-07-10 05:00] VITALS: BP 124/75
[2020-07-10] MEDS: ASPIRIN CHEWABLE 81 MG TABLET. PO SCH (08:33)
[2020-07-10] MEDS: OMEGA-3 FATTY ACIDS/FISH OIL 1,000 MG CAPSULE. PO SCH ×2 (08:33→21:31)
[2020-07-10] MEDS: lamoTRIgine 25 MG TABLET. PO SCH ×2 (08:34→09:00)
[2020-07-10] MEDS: ASCORBIC ACID 500 MG TABLET PO SCH (08:34)
[2020-07-10] MEDS: LISINOPRIL 10 MG TABLET PO SCH (08:34)
[2020-07-10] MEDS: CLOPIDOGREL BISULFATE 75 MG TABLET PO SCH (08:34)
[2020-07-10] MEDS: MULTIVITAMIN with MINERAL TABLET. PO SCH (08:34)
[2020-07-10] MEDS: CHOLECALCIFEROL (VITAMIN D3) 1,000 UNIT TABLET PO SCH (08:35)
[2020-07-10] MEDS: SERTRALINE 25 MG TABLET. PO SCH (08:35)
[2020-07-10] MEDS: CETIRIZINE HCL 10 MG TABLET PO SCH (08:35)
[2020-07-10] MEDS ORDERED: QUEtiapine 25 MG TABLET. PO SCH (09:00)
[2020-07-10] MEDS: ALPRAZolam 0.5 MG TABLET PO PRN ×2 (10:41→14:59)
--- NOTE | 2020-07-10 10:49 | NUR ---
0835: Pt is calm, cooperative and compliant. He reports he feels anxiety today and that it is related to tomorrow being his birthday and he is still here. He also states he feels like a burden to his . He stated she is a good women and I don't want to trouble her. Staff validated pt feelings, provided emotional support and redirection with the [facility]- (pt watch his favorite [employer] service rather than taking a xanax stating "I know I can't take xanax all of the time, it makes me sleepy.") No agitation, no aggression, no hallucination, no delusions noted. Pt is compliant with his medication and assessment. 1040: Pt approached nurses station stating he is very anxious. PRN xanax given. Pts then called for pt. Nurse encouraged to call back in 1 hour. was ok with this.
[2020-07-10 15:00] VITALS: BP 121/74
[2020-07-10] MEDS ORDERED: QUEtiapine 25 MG TABLET. PO ONE (15:45)
[2020-07-10 17:00] VITALS: BP 123/70
--- NOTE | 2020-07-10 17:26 | NUR ---
1700: Pt stated "I have really bad chest pain in the center of my chest I wanted you to be aware of." VSS. Nurse paged Dr. Lee. New orders for CBC, CMP, D-dimer, troponin, CK, and 12-lead ekg. Will calll Dr. Lee if any results are abnormal.
[2020-07-10 17:43] LABS: BASO # 0.1 x10^3/uL (0.0-0.2); BASO % 1 % (0-3); EOS # 0.1 x10^3/uL (0.0-0.7); EOS % 2 % (0-3); HEMATOCRIT 43.7 % (39.0-53.0); HEMOGLOBIN 14.5 g/dL (13.0-17.5); LYMPH # 1.4 x10^3/uL (1.0-4.8); LYMPH % 22 % (24-48); MEAN CORPUSCULAR HEMOGLOBIN 31 pg (25-35); MEAN CORPUSCULAR HGB CONC 33 g/dL (31-37); MEAN CORPUSCULAR VOLUME 95 fL (79-100); MONO # 0.8 x10^3/uL (0.0-1.1); MONO % 12 % (0-9); NEUT # 4.1 x10^3uL (1.8-7.7); NEUT % 64 % (31-73); PLATELET COUNT 174 x10^3/uL (140-400); RED BLOOD COUNT 4.62 x10^6/uL (4.30-5.70); RED CELL DISTRIBUTION WIDTH 13.7 % (11.5-14.5); WHITE BLOOD COUNT 6.4 x10^3/uL (4.0-11.0)
[2020-07-10 18:41] LABS: CREATININE 1.4 mg/dL (0.7-1.3); GFR 48.5; POTASSIUM 4.4 mmol/L (3.5-5.1)
[2020-07-10 18:47] LABS: ALBUMIN 3.4 g/dL (3.4-5.0); ALBUMIN/GLOBULIN RATIO 1.1 (1.0-1.7); TOTAL BILIRUBIN 0.2 mg/dL (0.2-1.0); TOTAL PROTEIN 6.6 g/dL (6.4-8.2)
[2020-07-10] MEDS ORDERED: IOHEXOL 350 MG/ML 100 ML VIAL. IV ONE (19:30)
[2020-07-10] MEDS ORDERED: CONTRAST GIVEN. MC PRN (19:30)
[2020-07-10] MEDS: QUEtiapine 50 MG TABLET. PO SCH (21:30)
[2020-07-10] MEDS: MIRTAZAPINE ODT 30 MG TAB.RAPDIS. PO SCH (21:30)
--- NOTE | 2020-07-10 21:57 | RAD ---
Exam: CT of chest with contrast INDICATION: Chest pain TECHNIQUE: Sequential axial images through the chest obtained following the administration of 75 mL of Isovue-370 IV contrast. Sagittal and coronal reformatted images were reconstructed from the axial data and reviewed. 3-D reformatted images were reconstructed from the axial data and reviewed. Comparisons: None FINDINGS: Visualized portions of the thyroid are unremarkable. No enlarged mediastinal lymph nodes are identified. Heart size is normal. No pericardial effusion. Mild coronary artery calcium lesions. Thoracic aorta has a normal course and caliber. Pulmonary artery is not enlarged. No pulmonary embolus identified within the main, lobar or segmental pulmonary arteries. Airways are patent. Strandy opacities at dependent portion lungs likely representing atelectasis. No consolidation or pneumothorax. No suspicious lung nodules are identified. No pleural effusion or thickening. Cholelithiasis. There is a hyperattenuating subcentimeter cystic lesion at the upper pole right kidney measuring 8 mm. No suspicious osseous lesions or acute fractures. IMPRESSION: 1. No pulmonary embolus identified within the main, lobar or segmental pulmonary arteries. 2. Cholelithiasis. 3. An 8 mm hyperattenuating nodule at the upper pole of the right kidney. Further evaluation with nonemergent/outpatient renal protocol MRI is recommended. Exposure: One or more of the following in the visualized dose reduction techniques were utilized for this examination: 1. Automated exposure control 2. Adjustment of the MA and/or KV according to patient size 3. Use of iterative of reconstructive technique Electronically signed by: Riddhi Carlton MD (07/10/2020 9:54 PM) [id number]
--- NOTE | 2020-07-10 22:10 | PDOC ---
Exam Note: Julian Note: Please also refer to the separate dictated note~for this date of service dictated separately.~Patient seen individually. Discussed the patient with Nursing staff reviewed the chart.~Reviewed interim history and current functioning. Reviewed vital signs,~Labs/ Radiology~and current medications noted below. Continue current treatment with the changes noted in the dictated addendum note Assessment: Vital Signs/I&O: Vital Signs Date Time Temp Pulse Resp B/P (MAP) Pulse Ox O2 Delivery O2 Flow Rate FiO2 07/10/20 17:00 97.4 74 18 123/70 (87) 96 07/10/20 15:00 Room Air I & O 07/09/20 07/09/20 07/10/20 15:00 23:00 07:00 Intake Total 860 ml 260 ml Balance 860 ml 260 ml Labs: Laboratory Tests Test 07/10/20 17:30 07/10/20 17:31 D-Dimer (Carrie) 4.52 mg/L (0.00-0.50) H White Blood Count 6.4 x10^3/uL (4.0-11.0) Red Blood Count 4.62 x10^6/uL (4.30-5.70) Hemoglobin 14.5 g/dL (13.0-17.5) Hematocrit 43.7 % (39.0-53.0) Mean Corpuscular Volume 95 fL (79-100) Mean Corpuscular Hemoglobin 31 pg (25-35) Mean Corpuscular Hemoglobin Concent 33 g/dL (31-37) Red Cell Distribution Width 13.7 % (11.5-14.5) Platelet Count 174 x10^3/uL (140-400) Neutrophils (%) (Auto) 64 % (31-73) Lymphocytes (%) (Auto) 22 % (24-48) L Monocytes (%) (Auto) 12 % (0-9) H Eosinophils (%) (Auto) 2 % (0-3) Basophils (%) (Auto) 1 % (0-3) Neutrophils # (Auto) 4.1 x10^3uL (1.8-7.7) Lymphocytes # (Auto) 1.4 x10^3/uL (1.0-4.8) Monocytes # (Auto) 0.8 x10^3/uL (0.0-1.1) Eosinophils # (Auto) 0.1 x10^3/uL (0.0-0.7) Basophils # (Auto) 0.1 x10^3/uL (0.0-0.2) Sodium Level 136 mmol/L (136-145) Potassium Level 4.4 mmol/L (3.5-5.1) Chloride Level 102 mmol/L (98-107) Carbon Dioxide Level 24 mmol/L (21-32) Anion Gap 10 (6-14) Blood Urea Nitrogen 24 mg/dL (8-26) Creatinine 1.4 mg/dL (0.7-1.3) H Estimated GFR (Cockcroft-Gault) 48.5 BUN/Creatinine Ratio 17 (6-20) Glucose Level 119 mg/dL (70-99) H Calcium Level 9.0 mg/dL (8.5-10.1) Total Bilirubin 0.2 mg/dL (0.2-1.0) Aspartate Amino Transferase (AST) 18 U/L (15-37) Alanine Aminotransferase (ALT) 35 U/L (16-63) Alkaline Phosphatase 80 U/L (46-116) Creatine Kinase 91 U/L (39-308) Troponin I Quantitative < 0.017 ng/mL (0-0.055) Total Protein 6.6 g/dL (6.4-8.2) Albumin 3.4 g/dL (3.4-5.0) Albumin/Globulin Ratio 1.1 (1.0-1.7) Current Medications: Meds: Current Medications Medications (Trade) Dose Ordered Sig/Chelsi Route PRN Reason Start Time Stop Time Status Last Admin Dose Admin Lamotrigine (LaMICtal) 50 mg DAILY PO 07/10/20 09:00 07/10/20 08:34 Quetiapine Fumarate (SEROquel) 25 mg DAILY PO 07/10/20 09:00 07/10/20 15:50 DC 07/10/20 08:34 Quetiapine Fumarate (SEROquel) 25 mg 1X ONCE PO 07/10/20 15:45 07/10/20 16:21 DC 07/10/20 16:34 Iohexol (Omnipaque 350 Mg/ml) 75 ml 1X ONCE IV 07/10/20 19:30 07/10/20 19:31 DC 07/10/20 21:15 I have reviewed the current psychotropics carefully including drug interactions. Risk benefit ratio favors no change other than as noted in my dictated progress note. Diagnosis: Problems: (1) Impulse control disorder (2) Anxiety disorder, unspecified (3) Bipolar disorder, current episode depressed, mild (4) MDD (major depressive disorder) MARGARET LANGLEY MD Jul 10, 2020 22:10
--- NOTE | 2020-07-10 22:27 | PDOC ---
Exam Note: Julian Note: This note is a late entry for 07/09/2020 covers elements not covered in my initial note. Subjective: The patient was reviewed on telehealth rounds in the evening of 07/09/2020 with Stacy RIVERA. Discussed with nursing staff, reviewed the chart. I had several calls from [facility], social service liaison and emails from nursing staff. The patient initially wanted to be discharged AMA and the he was able to talk to his and changed that plan for discharge on Saturday but then again I contacted the staff that he wanted to leave. Ultimately he has agreed to stay to continue his hospitalization and stabilization on the psychotropics and I addressed this with him during telehealth rounds. He has done well during the day. Review of Systems: No CV, , pulmonary, eye, ENT system symptoms on review. Mental Status Exam: The patient is reasonably oriented. Speech is coherent, has some latency. Abstraction is fair. Computation impaired. Language fu nction intact. Mood and affect somewhat withdrawn, anxious, depressed but better than before. No suicidal ideation. Laboratory Data: Reviewed. Impression: Bipolar disorder depressed. Major depressive disorder. Anxiety disorder unspecified. Rest as above. Plan: Continue current psychotropics from initial note. Gradually increase the Lamictal. Maintain Remeron, Zoloft. He remains on Seroquel 100 mg h.s., trazodone at night p.r.n. for insomnia. Start Seroquel 25 mg a.m. for anxiety and mood stabilization. Make further adjustments as clinically indicated. Assessment: Vital Signs/I&O: Vital Signs Date Time Temp Pulse Resp B/P (MAP) Pulse Ox O2 Delivery O2 Flow Rate FiO2 07/10/20 17:00 97.4 74 18 123/70 (87) 96 07/10/20 15:00 Room Air I & O 07/09/20 07/09/20 07/10/20 15:00 23:00 07:00 Intake Total 860 ml 260 ml Balance 860 ml 260 ml Labs: Laboratory Tests Test 07/10/20 17:30 07/10/20 17:31 D-Dimer (Carrie) 4.52 mg/L (0.00-0.50) H White Blood Count 6.4 x10^3/uL (4.0-11.0) Red Blood Count 4.62 x10^6/uL (4.30-5.70) Hemoglobin 14.5 g/dL (13.0-17.5) Hematocrit 43.7 % (39.0-53.0) Mean Corpuscular Volume 95 fL (79-100) Mean Corpuscular Hemoglobin 31 pg (25-35) Mean Corpuscular Hemoglobin Concent 33 g/dL (31-37) Red Cell Distribution Width 13.7 % (11.5-14.5) Platelet Count 174 x10^3/uL (140-400) Neutrophils (%) (Auto) 64 % (31-73) Lymphocytes (%) (Auto) 22 % (24-48) L Monocytes (%) (Auto) 12 % (0-9) H Eosinophils (%) (Auto) 2 % (0-3) Basophils (%) (Auto) 1 % (0-3) Neutrophils # (Auto) 4.1 x10^3uL (1.8-7.7) Lymphocytes # (Auto) 1.4 x10^3/uL (1.0-4.8) Monocytes # (Auto) 0.8 x10^3/uL (0.0-1.1) Eosinophils # (Auto) 0.1 x10^3/uL (0.0-0.7) Basophils # (Auto) 0.1 x10^3/uL (0.0-0.2) Sodium Level 136 mmol/L (136-145) Potassium Level 4.4 mmol/L (3.5-5.1) Chloride Level 102 mmol/L (98-107) Carbon Dioxide Level 24 mmol/L (21-32) Anion Gap 10 (6-14) Blood Urea Nitrogen 24 mg/dL (8-26) Creatinine 1.4 mg/dL (0.7-1.3) H Estimated GFR (Cockcroft-Gault) 48.5 BUN/Creatinine Ratio 17 (6-20) Glucose Level 119 mg/dL (70-99) H Calcium Level 9.0 mg/dL (8.5-10.1) Total Bilirubin 0.2 mg/dL (0.2-1.0) Aspartate Amino Transferase (AST) 18 U/L (15-37) Alanine Aminotransferase (ALT) 35 U/L (16-63) Alkaline Phosphatase 80 U/L (46-116) Creatine Kinase 91 U/L (39-308) Troponin I Quantitative < 0.017 ng/mL (0-0.055) Total Protein 6.6 g/dL (6.4-8.2) Albumin 3.4 g/dL (3.4-5.0) Albumin/Globulin Ratio 1.1 (1.0-1.7) Current Medications: Meds: Current Medications Medications (Trade) Dose Ordered Sig/Chelsi Route PRN Reason Start Time Stop Time Status Last Admin Dose Admin Lamotrigine (LaMICtal) 50 mg DAILY PO 07/10/20 09:00 07/10/20 08:34 Quetiapine Fumarate (SEROquel) 25 mg DAILY PO 07/10/20 09:00 07/10/20 15:50 DC 07/10/20 08:34 Quetiapine Fumarate (SEROquel) 25 mg 1X ONCE PO 07/10/20 15:45 07/10/20 16:21 DC 07/10/20 16:34 Iohexol (Omnipaque 350 Mg/ml) 75 ml 1X ONCE IV 07/10/20 19:30 07/10/20 19:31 DC 07/10/20 21:15 I have reviewed the current psychotropics carefully including drug interactions. Risk benefit ratio favors no change other than as noted in my dictated progress note. Diagnosis: Problems: (1) Impulse control disorder (2) Anxiety disorder, unspecified (3) Bipolar disorder, current episode depressed, mild (4) MDD (major depressive disorder) MARGARET LANGLEY MD Jul 10, 2020 22:27
--- NOTE | 2020-07-10 22:39 | NUR ---
Patient is in his room on assumption of care. Compliant with assessments and medications taken whole. Orders received from Dr. Lee in regards to episode of chest pain earlier and elevated ddimer of 4.52: CT chest with angiography stat. Janet Mills RN, up to unit to insert IV for contrast. 20 gauge IV placed in left forearm. Patient tolerated well. Patient brought down to radiology and tolerated that procedure well. Upon return to the unit, patient requested that his IV be removed. This RN told him that it should stay in place until his results came back, and that hopefully it could be removed in the morning. He stated "Good, because I am going home tomorrow. My should be here by mid-morning." IV tubing covered with tubigrip for patients comfort. Patient has not had any further complaints of chest pain or any other discomfort, and he denies anxiety. Denies SI. Presently, patient appears to be sleeping comfortably. Will continue to monitor.
[2020-07-11 06:00] VITALS: BP 123/81
[2020-07-11 08:47] VITALS: BP 123/81
[2020-07-11] MEDS: lamoTRIgine 25 MG TABLET. PO SCH (08:47)
[2020-07-11] MEDS: LISINOPRIL 10 MG TABLET PO SCH (08:47)
[2020-07-11] MEDS: CLOPIDOGREL BISULFATE 75 MG TABLET PO SCH (08:47)
[2020-07-11] MEDS: OMEGA-3 FATTY ACIDS/FISH OIL 1,000 MG CAPSULE. PO SCH (08:47)
[2020-07-11] MEDS: CHOLECALCIFEROL (VITAMIN D3) 1,000 UNIT TABLET PO SCH (08:47)
[2020-07-11] MEDS: ASCORBIC ACID 500 MG TABLET PO SCH (08:47)
[2020-07-11] MEDS: ASPIRIN CHEWABLE 81 MG TABLET. PO SCH (08:47)
[2020-07-11] MEDS: MULTIVITAMIN with MINERAL TABLET. PO SCH (08:47)
[2020-07-11] MEDS: SERTRALINE 25 MG TABLET. PO SCH (08:48)
[2020-07-11] MEDS: CETIRIZINE HCL 10 MG TABLET PO SCH (08:48)
[2020-07-11] MEDS: ALPRAZolam 0.5 MG TABLET PO PRN ×2 (08:49→13:05)
[2020-07-11] MEDS: QUEtiapine 25 MG TABLET. PO SCH ×2 (08:49→13:03)
--- NOTE | 2020-07-11 09:05 | NUR ---
Pt is calm, cooperative and compliant. No agitation, no aggression, no hallucinations or delusions noted. Pt is compliant with his medication and assessment.
--- NOTE | 2020-07-11 10:47 | NUR ---
[facility] Social Work Discharge Planning Form Patient Name SRIDHAR KNUTSON Admit Date: 07/02/2020 DISCHARGE PLAN Discharge Destination: Pt to discharge home with . Care Assessment:N/A Level II Assessment: N/A Transportation: Pt to pick pt up between 330 and 400 Special Instructions/Notes: Please fax the discharge information to the fax numbers listed below. DISCHARGE TO HOME: Address: [address] [place] [address] ; [place] [address] Responsible Republican: Pt is a self-sign Pharmacy: [facility] Contact Information: [address] [place] [address] Psychiatrist/Mental Health Follow Up: Dr. Jill Cerrato Contact Information: [address] [facility], [address]; [place] [address] Appointment: Will schedule appointment with pt and pt Primary Care Follow Up: Dr. Osorio Salas Contact Information: [address] , [place] [address] Appointment: Saturday07/13/2020 @ 1100
[2020-07-11] MEDS ORDERED: QUET25TA5 PO (11:05)
--- NOTE | 2020-07-11 12:28 | NUR ---
Medications called into [facility] with pharmacist
--- NOTE | 2020-07-11 12:44 | NUR ---
SW returned call to pt and discussed with her the conversations had with pt on Saturday and to also discuss the fact that pt really should have the DPOA inacted; this would help a lot of the decision making process in which she would be more responsible for maintaining pt care. Pt agreed as the family really is concerned about him being ready to discharge and thinks he needs more time. TOI explained that with DPOA, that would be feasible and pt making the calls to go AMA or being impulsive with his discharge planning would not be an option. Pt informed TOI that they were at the hospital and SW instructed pt on how to get up the hill and what to do. Addendum: 07/11/20 at 1258 by LANNY CM Please note that this conversation took place at 0913.
--- NOTE | 2020-07-11 13:10 | NUR ---
Transition Record was faxed to follow-up provider with the following elements: Reason for admission, procedures, tests, principal diagnosis, pending studies, patient instructions, 22/04 contact information for unit, phone number to obtain pending test results, plan for follow-up care, physician follow-up, advanced directive information, and medication list with dose, duration and instructions. This information was included in the following documents: History and physical, lab results, study results, progress notes, social work planning form, DC instruction form, patient visit summary, and medication reconciliation form. Date & time record faxed: 07/11/2020 Record faxed to: PCP Osorio Salas and psychiatrist Jill Cerrato Record discussed with/ report given to: who acknowledged understanding.
--- NOTE | 2020-07-11 21:54 | DS ---
DATE OF DISCHARGE: 07/11/2020 DISCHARGE SUMMARY AND PSYCHIATRIC PROGRESS NOTE This note covers elements not covered in my initial note of 07/11/2020. REASON FOR ADMISSION: Please refer to the admission history for details. Briefly, the patient is an 85-year-old male referred to us from the [facility] Emergency Room, where he presented from home on account of being severely depressed with suicidal ideation, no plans. He was having daily panic attacks with changes in his sleep and appetite, feeling hopeless, helpless, worthless, poor personal hygiene. He had failed outpatient psychiatric interventions and prior treatment with electroconvulsive therapy, transcranial magnetic stimulation therapy, light therapy and various antidepressants. The patient was a potential danger to himself and admitted for inpatient psychiatric stabilization initially to the detention unit until he returned to COVID negative status and then transition to [facility]. SIGNIFICANT FINDINGS AND CLINICAL COURSE: Following admission, the patient was seen daily individually by myself from a psychiatric standpoint, medical followup with Dr. Lee/Dr. Longoria. The patient was extremely depressed, anxious and a careful review of his history was evident for bipolar 2 disorder. Lamictal was initiated 25 mg a day, increasing gradually up to 75 mg a day. He finally seemed to respond to a combination additionally of Remeron 30 mg at bedtime; Xanax 0.5 mg t.i.d. p.r.n.; Zyprexa p.r.n.; trazodone 50 mg at bedtime p.r.n., may repeat x 1; Seroquel 25 mg at 0900, 1500 hours and 100 mg at bedtime. He would still get quite anxious, overwhelmed in the evening, but this gradually improved prior to discharge on 07/11/2020. REVIEW OF SYSTEMS: No CV, , pulmonary, eye, ENT system symptoms on review. MENTAL STATUS EXAM: Reasonably oriented. Speech is coherent, abstraction fair, computation impaired, language function intact. Mood and affect is improved. No suicidal ideation at discharge. FINAL DIAGNOSES: Bipolar 2 disorder, depressed; major depressive disorder in partial remission; anxiety disorder, unspecified; impulse control disorder, unspecified. Rest unchanged from admission. DISCHARGE MEDICATIONS: Please refer to the MRAD. DISCHARGE INSTRUCTIONS: Outpatient psychiatric followup with psychiatrist as arranged by social service staff and medical followup with his primary care physician. His was very supportive and would frequently check in with the nursing staff about his progress and supportive during his panic attacks and significant decompensation, which was evident on the unit, intermittently earlier in his stay. Time for discharge day management greater than 30 minutes. MAN Dale LANGLEY MD DR: KEESHA/seven JOB#: [id number] / [id number]
--- NOTE | 2020-07-11 22:07 | PDOC ---
Exam Note: Julian Note: Please also refer to the separate dictated note~for this date of service dictated separately.~Patient seen individually. Discussed the patient with Nursing staff reviewed the chart.~Reviewed interim history and current functioning. Reviewed vital signs,~Labs/ Radiology~and current medications noted below. Continue current treatment with the changes noted in the dictated addendum note Assessment: Vital Signs/I&O: Vital Signs Date Time Temp Pulse Resp B/P (MAP) Pulse Ox O2 Delivery O2 Flow Rate FiO2 07/11/20 08:47 82 123/81 07/11/20 06:00 97.3 16 91 BiPAP/CPAP I & O 07/10/20 07/10/20 07/11/20 15:00 23:00 07:00 Intake Total 700 ml 600 ml Balance 700 ml 600 ml Current Medications: Meds: Current Medications Medications (Trade) Dose Ordered Sig/Chelsi Route PRN Reason Start Time Stop Time Status Last Admin Dose Admin Quetiapine Fumarate (SEROquel) 25 mg 0900,1500 PO 07/11/20 09:00 07/11/20 14:22 DC 07/11/20 13:03 I have reviewed the current psychotropics carefully including drug interactions. Risk benefit ratio favors no change other than as noted in my dictated progress note. Diagnosis: Problems: (1) Major depressive disorder in partial remission (2) Bipolar disorder, current episode depressed, mild (3) Anxiety disorder, unspecified (4) Impulse control disorder MARGARET LANGLEY MD Jul 11, 2020 22:07
--- NOTE | 2020-07-12 06:25 | PDOC ---
Exam Note: Julian Note: This note is a late entry for 07/10/2020 covers elements not covered in my initial note. Subjective: The patient was reviewed on telehealth rounds in the evening of 07/10/2020 with Stacy RIVERA. Discussed with nursing staff, reviewed the chart. He slept 8 hours. He has been quite anxious. Received Xanax at 10.41 a.m., then 1500 hours. He continues to do a little better with the Seroquel and we will add Seroquel 25 mg at noon and 3 p.m. in preparation for tapering the Xanax which may have to be done as an outpatient. The patient was still fixated on wanting to be discharged and I addressed this with him. Denies suicidal ideation. He has [birth year] on [birth year] and states he wants to be home for it. Review of Systems: No CV, , pulmonary, eye, ENT system symptoms on review. Mental Status Exam: The patient is reasonably oriented. He was very pleasant interactive as I met with him. Speech is coherent, has some latency. Abstraction is fair. Computation impaired. Language function intact. Mood and affect still somewhat depressed and mood is improved. No suicidal or homicidal ideation. Laboratory Data: Reviewed. Impression: Bipolar 2 disorder depressed. Major depressive disorder in partial remission. Anxiety disorder unspecified. Plan: He continues to do a little better with the Seroquel and we will add Seroquel 25 mg at noon and 3 p.m. in preparation for tapering the Xanax which may have to be done as an outpatient. Assessment: Vital Signs/I&O: Vital Signs Date Time Temp Pulse Resp B/P (MAP) Pulse Ox O2 Delivery O2 Flow Rate FiO2 07/11/20 08:47 82 123/81 07/11/20 06:00 97.3 16 91 BiPAP/CPAP I & O 07/11/20 07/11/20 07/12/20 15:00 23:00 07:00 Intake Total 840 ml Balance 840 ml Current Medications: Meds: Current Medications Medications (Trade) Dose Ordered Sig/Chelsi Route PRN Reason Start Time Stop Time Status Last Admin Dose Admin Quetiapine Fumarate (SEROquel) 25 mg 0900,1500 PO 07/11/20 09:00 07/11/20 14:22 DC 07/11/20 13:03 I have reviewed the current psychotropics carefully including drug interactions. Risk benefit ratio favors no change other than as noted in my dictated progress note. Diagnosis: Problems: (1) Impulse control disorder (2) Anxiety disorder, unspecified (3) Bipolar disorder, current episode depressed, mild (4) Major depressive disorder in partial remission MARGARET LANGLEY MD Jul 12, 2020 06:25
[2020-07-24] MEDS ORDERED: lamoTRIgine 25 MG TABLET. PO SCH (09:00)
== END 2020-07-11 13:15 | disposition home or self-care (01) | DRG 885 ==
LOC: GEROPSY 19:20
PROVIDERS: ADMIT Psychiatry & Neurology Psychiatry; ATTEND Psychiatry & Neurology Psychiatry
PROC: 5A09357 Assistance with Respiratory Ventilation, Less than 24 Consecutive Hours, Continuous Positive Airway Pressure (ICD-10-PCS; principal; 2020-07-03)
PROC: 5A09357 Assistance with Respiratory Ventilation, Less than 24 Consecutive Hours, Continuous Positive Airway Pressure (ICD-10-PCS; 2020-07-10)
PROC: 5A09357 Assistance with Respiratory Ventilation, Less than 24 Consecutive Hours, Continuous Positive Airway Pressure (ICD-10-PCS; 2020-07-11)
DX: F31.81 Bipolar II disorder (principal); R45.851 Suicidal ideations; F41.9 Anxiety disorder, unspecified; F63.9 Impulse disorder, unspecified; Z20.828 Contact with and (suspected) exposure to other viral communicable diseases; I10 Essential (primary) hypertension; M19.90 Unspecified osteoarthritis, unspecified site; F41.0 Panic disorder [episodic paroxysmal anxiety]; F22 Delusional disorders; E66.9 Obesity, unspecified; Z68.31 Body mass index [BMI] 31.0-31.9, adult; Z79.899 Other long term (current) drug therapy
CPT/HCPCS: 36415; 71275; 80053; 82550; 84484; 85007; 85025; 85379; 93005; Q9967; 97530; U0003-CS